=== PATIENT | male | born 1960 | race Caucasian/White ===

== ENCOUNTER 2019-11-04 17:16 | Emergency (ER) | payer OTHER ==
--- OUTSIDE RECORDS SUMMARY | 2019-11-04 17:27 | XMS REPORT | Continuity of Care Document ---
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 Onset: 2016 Primary malignant neoplasm of unspecified Shania Mcdermott DO Onset: 2016 site (clinical) Chemotherapy changed - patient choice Shania Mcdermott DO Onset: 04/05/2019 Social History Type Date Description Comments Sex Unknown Tobacco Use Start: Unknown Never Smoked Cigarettes ETOH Use Never used alcohol Tobacco Use Start: Unknown Patient has never smoked Allergies, Adverse Reactions, Alerts Active Allergies Reaction Severity Comments Date Cipro Bactrim Moderate 01/16/2017 Inactive Allergies Amlodipine "nervous" feelings NKDA 05/09/2011 Medications Active Medications SIG Qnty Indications Ordering Provider Date Afluria Preservative Unknown 07/29/2019 Free 0.5ml Kiana Clonidine HCL 1 patch topically Kenia Dumont MD 09/25/2017 0.1mg/24HR weekly Patches Weekly Lisinopril 1 by mouth every Unknown 40mg Tablets day Colace prn Unknown 100mg Capsules Metoprolol Tartrate 1 Day Twice A Day Unknown 50mg Tablets Amlodipine Besylate Once Daily Marco Smith MD 5mg Tablets Immunizations Description No Information Available Vital Signs Date Vital Result Comment 10/04/2019 1:36pm BP Systolic 151 mmHg BP Diastolic 98 mmHg Body Temperature 98.6 F Heart Rate 71 /min Respiratory Rate 18 /min Weight 157.25 lb O2 % BldC Oximetry 100 % Ra Pain Level 0 09/06/2019 2:03pm BP Systolic 159 mmHg right BP Diastolic 103 mmHg right BP Systolic Sitting Right Arm 144 mmHg BP Diastolic Sitting Right Arm 96 mmHg Body Temperature 98.6 F Heart Rate 78 /min Respiratory Rate 18 /min Weight 153.38 lb O2 % BldC Oximetry 97 % Ra Pain Level 0 Results Test Acquired Facility Test Result H/L Range Note Date Laboratory 10/04/2019 [facility] Chromogranin A <pending> test finding [address] [place] [address] [phone] [facility] 10/04/2019 [facility] White Blood 6.8 K/uL Normal 3.4-10.5 1 W/Automated [address] [place] [address] [phone] Red Blood Count 4.67 M/uL Normal 4.20-5.80 Hemoglobin 15.6 gm/dL Normal 12.8-17.0 Hematocrit 45.6 % Normal 38.0-48.0 Mean Cell Volume 97.6 fl High 80.0-96.0 Mean Corpuscular HGB 33.4 pg High 27.0-33.0 Mean Corpuscular HGB Conc 34.2 g/dL Normal 31.7-36.0 Platelet Count 266 K/uL Normal 155-360 Red Cell Distri Width SD 44.5 fl Normal 36-51 Red Cell Distri Width %CV 12.4 % Normal 11.6-15.8 Mean Platelet Volume 10.3 fl Normal 6.6-10.6 Neut% 50.9 % Normal 33.0-73.0 Lymph % 38.0 % Normal 20.0-42.0 [place] % 8.1 % Normal 0.0-10.0 Eo% 1.8 % Normal 0.0-6.6 Bas% 0.9 % Normal 0.0-1.1 Immature Grans 0.3 % Normal 0.0-5.0 NRBC % 0.0 /100WBC < 10/ 100 WBC Neut# 3.45 K/uL Normal 1.8-7.0 Lymph # 2.57 K/uL Normal 1.0-4.0 [place] # 0.55 K/uL Normal 0.0-0.8 Eos # 0.12 K/uL Normal 0.0-0.5 Baso # 0.06 K/uL Normal 0.0-0.1 Immature Grans Absolute 0.02 K/uL NRBC # 0.00 K/uL Comprehensive Metabolic 10/04/2019 [facility] Glucose 111 mg/dL High 74-[address] [place] [address] [phone] BUN 20 mg/dL High 7-18 Creatinine 1.1 mg/dL Normal 0.6-1.3 Glom Filtration Rate, Estimate >60 mL/min >60 If >60 mL/min >60 2 BUN/Creat 18.1 ratio Sodium 137 mmol/L Normal 136-145 Potassium 4.1 mmol/L Normal 3.5-5.1 Chloride 103 mmol/L Normal 98-107 Carbon Dioxide 32 mmol/L Normal 21-32 Anion Gap 2 mEq/L Low 8-16 Calcium 9.0 mg/dL Normal 8.5-10.1 Total Protein 8.4 g/dL High 6.4-8.2 Albumin 4.1 g/dL Normal 3.4-5.0 Globulin 4.3 g/dL Normal 1.9-4.3 Alb/Glob 1.0 ratio Bilirubin,Total 0.6 mg/dL Normal 0.2-1.0 Sgot/Ast 21 U/L Normal 15-37 SGPT/Alt 28 U/L Normal 12-78 Alkaline Phosphatase 60 U/L Normal 45-117 CBS W/Automated 09/06/2019 [facility] White Blood 6.8 K/uL Normal 3.4-10.[address] [place] [address] [phone] Red Blood Count 4.28 M/uL Normal 4.20-5.80 Hemoglobin 14.7 gm/dL Normal 12.8-17.0 Hematocrit 41.6 % Normal 38.0-48.0 Mean Cell Volume 97.2 fl High 80.0-96.0 Mean Corpuscular HGB 34.3 pg High 27.0-33.0 Mean Corpuscular HGB Conc 35.3 g/dL Normal 31.7-36.0 Platelet Count 276 K/uL Normal 155-360 Red Cell Distri Width SD 43.0 fl Normal 36-51 Red Cell Distri Width %CV 12.0 % Normal 11.6-15.8 Mean Platelet Volume 10.3 fl Normal 6.6-10.6 Neut% 51.7 % Normal 33.0-73.0 Lymph % 38.0 % Normal 20.0-42.0 [place] % 8.4 % Normal 0.0-10.0 Eo% 1.2 % Normal 0.0-6.6 Bas% 0.6 % Normal 0.0-1.1 Immature Grans 0.1 % Normal 0.0-5.0 NRBC % 0.0 /100WBC < 10/ 100 WBC Neut# 3.52 K/uL Normal 1.8-7.0 Lymph # 2.59 K/uL Normal 1.0-4.0 [place] # 0.57 K/uL Normal 0.0-0.8 Eos # 0.08 K/uL Normal 0.0-0.5 Baso # 0.04 K/uL Normal 0.0-0.1 Immature Grans Absolute 0.01 K/uL NRBC # 0.00 K/uL [facility] 09/06/2019 [facility] Glucose 103 mg/dL Normal 74-106 Metabolic Panel [address] [place] [address] [phone] BUN 18 mg/dL Normal 7-18 Creatinine 1.1 mg/dL Normal 0.6-1.3 Glom Filtration Rate, Estimate >60 mL/min >60 If >60 mL/min >60 4 BUN/Creat 16.3 ratio Sodium 135 mmol/L Low 136-145 Potassium 4.0 mmol/L Normal 3.5-5.1 Chloride 100 mmol/L Normal 98-107 Carbon Dioxide 30 mmol/L Normal 21-32 Anion Gap 5 mEq/L Low 8-16 Calcium 8.7 mg/dL Normal 8.5-10.1 Total Protein 8.1 g/dL Normal 6.4-8.2 Albumin 4.0 g/dL Normal 3.4-5.0 Globulin 4.1 g/dL Normal 1.9-4.3 Alb/Glob 1.0 ratio Bilirubin,Total 0.6 mg/dL Normal 0.2-1.0 Sgot/Ast 17 U/L Normal 15-37 SGPT/Alt 19 U/L Normal 12-78 Alkaline Phosphatase 53 U/L Normal 45-117 CBS W/Automated 08/09/2019 [facility] White Blood 6.3 K/uL Normal 3.4-10.5 [address] [place] [address] [phone] Red Blood Count 4.32 M/uL Normal 4.20-5.80 Hemoglobin 14.8 gm/dL Normal 12.8-17.0 Hematocrit 42.4 % Normal 38.0-48.0 Mean Cell Volume 98.1 fl High 80.0-96.0 Mean Corpuscular HGB 34.3 pg High 27.0-33.0 Mean Corpuscular HGB Conc 34.9 g/dL Normal 31.7-36.0 Platelet Count 250 K/uL Normal 155-360 Red Cell Distri Width SD 43.5 fl Normal 36-51 Red Cell Distri Width %CV 12.0 % Normal 11.6-15.8 Mean Platelet Volume 10.4 fl Normal 6.6-10.6 Neut% 48.6 % Normal 33.0-73.0 Lymph % 41.9 % Normal 20.0-42.0 [place] % 6.6 % Normal 0.0-10.0 Eo% 1.8 % Normal 0.0-6.6 Bas% 0.8 % Normal 0.0-1.1 Immature Grans 0.3 % Normal 0.0-5.0 NRBC % 0.0 /100WBC < 10/ 100 WBC Neut# 3.04 K/uL Normal 1.8-7.0 Lymph # 2.62 K/uL Normal 1.0-4.0 [place] # 0.41 K/uL Normal 0.0-0.8 Eos # 0.11 K/uL Normal 0.0-0.5 Baso # 0.05 K/uL Normal 0.0-0.1 Immature Grans Absolute 0.02 K/uL NRBC # 0.00 K/uL Comprehensive Metabolic 08/09/2019 [facility] Glucose 138 mg/dL High 74-[address] [place] [address] [phone] BUN 18 mg/dL Normal 7-18 Creatinine 1.0 mg/dL Normal 0.6-1.3 Glom Filtration Rate, Estimate >60 mL/min >60 If >60 mL/min >60 6 BUN/Creat 18.0 ratio Sodium 136 mmol/L Normal 136-145 Potassium 4.2 mmol/L Normal 3.5-5.1 Chloride 102 mmol/L Normal 98-107 Carbon Dioxide 31 mmol/L Normal 21-32 Anion Gap 3 mEq/L Low 8-16 Calcium 8.4 mg/dL Low 8.5-10.1 Total Protein 8.2 g/dL Normal 6.4-8.2 Albumin 3.9 g/dL Normal 3.4-5.0 Globulin 4.3 g/dL Normal 1.9-4.3 Alb/Glob 0.9 ratio Bilirubin,Total 0.6 mg/dL Normal 0.2-1.0 Sgot/Ast 21 U/L Normal 15-37 SGPT/Alt 25 U/L Normal 12-78 Alkaline Phosphatase 56 U/L Normal 45-117 CBS W/Automated 07/12/2019 [facility] White Blood 6.0 K/uL Normal 3.4-10.[address] [place] [address] [phone] Red Blood Count 4.13 M/uL Low 4.20-5.80 Hemoglobin 13.8 gm/dL Normal 12.8-17.0 Hematocrit 40.5 % Normal 38.0-48.0 Mean Cell Volume 98.1 fl High 80.0-96.0 Mean Corpuscular HGB 33.4 pg High 27.0-33.0 Mean Corpuscular HGB Conc 34.1 g/dL Normal 31.7-36.0 Platelet Count 217 K/uL Normal 155-360 Red Cell Distri Width SD 44.2 fl Normal 36-51 Red Cell Distri Width %CV 12.2 % Normal 11.6-15.8 Mean Platelet Volume 10.0 fl Normal 6.6-10.6 Neut% 45.6 % Normal 33.0-73.0 Lymph % 42.4 % High 20.0-42.0 [place] % 9.5 % Normal 0.0-10.0 Eo% 1.7 % Normal 0.0-6.6 Bas% 0.5 % Normal 0.0-1.1 Immature Grans 0.3 % Normal 0.0-5.0 NRBC % 0.0 /100WBC < 10/ 100 WBC Neut# 2.75 K/uL Normal 1.8-7.0 Lymph # 2.55 K/uL Normal 1.0-4.0 [place] # 0.57 K/uL Normal 0.0-0.8 Eos # 0.10 K/uL Normal 0.0-0.5 Baso # 0.03 K/uL Normal 0.0-0.1 Immature Grans Absolute 0.02 K/uL NRBC # 0.00 K/uL Comprehensive 07/12/2019 [facility] Glucose 86 mg/dL Normal 74-106 Metabolic Panel [address] [place] [address] [phone] BUN 18 mg/dL Normal 7-18 Creatinine 1.1 mg/dL Normal 0.6-1.3 Glom Filtration Rate, Estimate >60 mL/min >60 If >60 mL/min >60 7 BUN/Creat 16.3 ratio Sodium 135 mmol/L Low 136-145 Potassium 4.1 mmol/L Normal 3.5-5.1 Chloride 101 mmol/L Normal 98-107 Carbon Dioxide 31 mmol/L Normal 21-32 Anion Gap 3 mEq/L Low 8-16 Calcium 8.3 mg/dL Low 8.5-10.1 Total Protein 7.4 g/dL Normal 6.4-8.2 Albumin 3.3 g/dL Low 3.4-5.0 Globulin 4.1 g/dL Normal 1.9-4.3 Alb/Glob 0.8 ratio Bilirubin,Total 0.6 mg/dL Normal 0.2-1.0 Sgot/Ast 21 U/L Normal 15-37 SGPT/Alt 19 U/L Normal 12-78 Alkaline Phosphatase 47 U/L Normal 45-117 CBS W/Automated 06/14/2019 [facility] White Blood 6.6 K/uL Normal 3.4-10.5 [address] [place] [address] [phone] Red Blood Count 4.14 M/uL Low 4.20-5.80 Hemoglobin 14.3 gm/dL Normal 12.8-17.0 Hematocrit 39.8 % Normal 38.0-48.0 Mean Cell Volume 96.1 fl High 80.0-96.0 Mean Corpuscular HGB 34.5 pg High 27.0-33.0 Mean Corpuscular HGB Conc 35.9 g/dL Normal 31.7-36.0 Platelet Count 258 K/uL Normal 155-360 Red Cell Distri Width SD 42.5 fl Normal 36-51 Red Cell Distri Width %CV 12.1 % Normal 11.6-15.8 Mean Platelet Volume 10.3 fl Normal 6.6-10.6 Neut% 55.1 % Normal 33.0-73.0 Lymph % 35.2 % Normal 20.0-42.0 [place] % 6.9 % Normal 0.0-10.0 Eo% 1.5 % Normal 0.0-6.6 Bas% 0.8 % Normal 0.0-1.1 Immature Grans 0.5 % Normal 0.0-5.0 NRBC % 0.0 /100WBC < 10/ 100 WBC Neut# 3.66 K/uL Normal 1.8-7.0 Lymph # 2.34 K/uL Normal 1.0-4.0 [place] # 0.46 K/uL Normal 0.0-0.8 Eos # 0.10 K/uL Normal 0.0-0.5 Baso # 0.05 K/uL Normal 0.0-0.1 Immature Grans Absolute 0.03 K/uL NRBC # 0.00 K/uL Comprehensive Metabolic 06/14/2019 [facility] Glucose 138 mg/dL High 74-106 Panel [address] [place] [address] [phone] BUN 16 mg/dL Normal 7-18 Creatinine 1.2 mg/dL Normal 0.6-1.3 Glom Filtration Rate, Estimate >60 mL/min >60 If >60 mL/min >60 9 BUN/Creat 13.3 ratio Sodium 137 mmol/L Normal 136-145 Potassium 3.7 mmol/L Normal 3.5-5.1 Chloride 103 mmol/L Normal 98-107 Carbon Dioxide 28 mmol/L Normal 21-32 Anion Gap 6 mEq/L Low 8-16 Calcium 8.1 mg/dL Low 8.5-10.1 Total Protein 7.7 g/dL Normal 6.4-8.2 Albumin 3.5 g/dL Normal 3.4-5.0 Globulin 4.2 g/dL Normal 1.9-4.3 Alb/Glob 0.8 ratio Bilirubin,Total 0.5 mg/dL Normal 0.2-1.0 Sgot/Ast 21 U/L Normal 15-37 SGPT/Alt 31 U/L Normal 12-78 Alkaline Phosphatase 58 U/L Normal 45-117 Blood monocytes 06/05/2019 N2N/CCD Import Blood monocytes 0.71 0.0-0.8 automated count automated count (number/volume) (number/volume) Automated blood 06/05/2019 N2N/CCD Import Automated blood 0.19 0.0-0.5 eosinophil count eosinophil count Automated blood 06/05/2019 N2N/CCD Import Automated blood 0.03 0.0-0.1 basophil count basophil count (number/volume) (number/volume) Automated blood 06/05/2019 N2N/CCD Import Automated blood 0.03 immature immature granulocyte count granulocyte count (number (number/volume) Automated blood 06/05/2019 N2N/CCD Import Automated blood 0.00 nucleated nucleated erythrocyte count erythrocyte count (count (count/volume) Serum or plasma 06/05/2019 N2N/CCD Import Serum or plasma 109 High 74- 106 glucose measurement glucose (mass/volume) measurement (mass/volume) Serum or plasma 06/05/2019 N2N/CCD Import Serum or plasma 15 7-18 urea nitrogen urea nitrogen measurement measurement (mass/vo (mass/volume) Serum or plasma 06/05/2019 N2N/CCD Import Serum or plasma 1.0 0.6-1.3 creatinine creatinine measurement measurement (mass/volum (mass/volume) Estimated 06/05/2019 N2N/CCD Import Estimated >60 >60 glomerular glomerular filtration rate filtration rate (GFR) non-Afr (GFR) non- GFR/Bsa pred.black 06/05/2019 N2N/CCD Import GFR/Bsa pred.black >60 >60 SerPl MDRD-ArVRat SerPl MDRD-ArVRat Serum or plasma 06/05/2019 N2N/CCD Import Serum or plasma 15.0 urea urea nitrogen/creatinine nitrogen/creatinin mass rati e mass ratio Sodium SerPl-sCnc 06/05/2019 N2N/CCD Import Sodium SerPl-sCnc 142 136- 145 Serum or plasma 06/05/2019 N2N/CCD Import Serum or plasma 3.9 3.5-5.1 potassium potassium measurement measurement Serum or plasma 06/05/2019 N2N/CCD Import Serum or plasma 108 High 98- 107 chloride chloride measurement measurement Co2 SerPl-sCnc 06/05/2019 N2N/CCD Import Co2 SerPl-sCnc 28 21-32 Serum or plasma 06/05/2019 N2N/CCD Import Serum or plasma 6 Low 8-16 anion gap anion gap Serum or plasma 06/05/2019 N2N/CCD Import Serum or plasma 8.5 8.5-10.1 calcium measurement calcium (mass/volume) measurement (mass/volume) Lactic Acid 06/05/2019 [facility] Lactic Acid 1.1 Normal 0.4-1.[address] mmol/[place] [address] [phone] Lab Reflex >2.0 for Sepsis? Y Serum or plasma 06/05/2019 N2N/CCD Import Serum or plasma 1.1 0.4-1.9 lactate lactate measurement measurement (moles/volume) (moles/volume) Laboratory test 06/05/2019 [facility] Legionella Negative Negative [address] [place] [address] [phone] Urine Legionella 06/05/2019 N2N/CCD Import Urine Legionella Negative Negative pneumophila 1 pneumophila 1 antigen detection antigen detection b by immunoassay CBC W/Automated 06/05/2019 [facility] White Blood Count 8.3 K/uL Normal 3.4- 10.[address] [place] [address] [phone] Red Blood Count 4.04 M/uL Low 4.20-5.80 Hemoglobin 13.9 gm/dL Normal 12.8-17.0 Hematocrit 39.6 % Normal 38.0-48.0 Mean Cell Volume 98.0 fl High 80.0-96.0 Mean Corpuscular HGB 34.4 pg High 27.0-33.0 Mean Corpuscular HGB Conc 35.1 g/dL Normal 31.7-36.0 Platelet Count 215 K/uL Normal 155-360 Red Cell Distri Width SD 45.0 fl Normal 36-51 Red Cell Distri Width %CV 12.4 % Normal 11.6-15.8 Mean Platelet Volume 10.3 fl Normal 6.6-10.6 Neut% 64.3 % Normal 33.0-73.0 Lymph % 24.1 % Normal 20.0-42.0 [place] % 8.5 % Normal 0.0-10.0 Eo% 2.3 % Normal 0.0-6.6 Bas% 0.4 % Normal 0.0-1.1 Immature Grans 0.4 % Normal 0.0-5.0 NRBC % 0.0 /100WBC < 10/ 100 WBC Neut# 5.35 K/uL Normal 1.8-7.0 Lymph # 2.00 K/uL Normal 1.0-4.0 [place] # 0.71 K/uL Normal 0.0-0.8 Eos # 0.19 K/uL Normal 0.0-0.5 Baso # 0.03 K/uL Normal 0.0-0.1 Immature Grans Absolute 0.03 K/uL NRBC # 0.00 K/uL Basic Metabolic Panel 06/05/2019 [facility] Glucose 109 mg/dL High 74-106 [address] [place] [address] [phone] BUN 15 mg/dL Normal 7-18 Creatinine 1.0 mg/dL Normal 0.6-1.3 Glom Filtration Rate, Estimate >60 mL/min >60 If >60 mL/min >60 12 BUN/Creat 15.0 ratio Sodium 142 mmol/L Normal 136-145 Potassium 3.9 mmol/L Normal 3.5-5.1 Chloride 108 mmol/L High 98-107 Carbon Dioxide 28 mmol/L Normal 21-32 Anion Gap 6 mEq/L Low 8-16 Calcium 8.5 mg/dL Normal 8.5-10.1 Automated 06/05/2019 N2N/CCD Import Automated 8.3 3.4-10.5 leukocyte count leukocyte count (number/volume) (number/volume) Blood erythrocytes 06/05/2019 N2N/CCD Import Blood erythrocytes 4.04 Low 4.20-5.80 automated count automated count (number/volume) (number/volume) Blood hemoglobin 06/05/2019 N2N/CCD Import Blood hemoglobin 13.9 12.8- 17.0 measurement measurement (mass/volume) (mass/volume) Hct VFr Bld Auto 06/05/2019 N2N/CCD Import Hct VFr Bld Auto 39.6 38.0- 48.0 Automated 06/05/2019 N2N/CCD Import Automated 98.0 High 80.0-96.0 erythrocyte mean erythrocyte mean corpuscular volume corpuscular volume (MCV (MCV) measurement Automated 06/05/2019 N2N/CCD Import Automated 34.4 High 27.0-33.0 erythrocyte mean erythrocyte mean corpuscular corpuscular hemoglobin hemoglobin (mass per erythrocyte) Automated 06/05/2019 N2N/CCD Import Automated 35.1 31.7-36.0 erythrocyte mean erythrocyte mean corpuscular corpuscular hemoglobin hemoglobin concentration measurement (mass/volume) Automated blood 06/05/2019 N2N/CCD Import Automated blood 215 155-360 platelet count platelet count (count/volume) (count/volume) Automated 06/05/2019 N2N/CCD Import Automated 45.0 36-51 erythrocyte erythrocyte distribution width distribution width Automated blood 06/05/2019 N2N/CCD Import Automated blood 2.00 1.0-4.0 lymphocyte count lymphocyte count (number/volume) (number/volume) Absolute 06/05/2019 N2N/CCD Import Absolute 5.35 1.8-7.0 neutrophil count neutrophil count Automated blood 06/05/2019 N2N/CCD Import Automated blood 0.0 < 10/ 100 nucleated nucleated WBC erythrocyte count erythrocyte count as per as percentage of total leukocytes Automated blood 06/05/2019 N2N/CCD Import Automated blood 0.4 0.0-5.0 immature immature granulocyte count granulocyte count as perc as percentage of total leukocytes Automated basophil 06/05/2019 N2N/CCD Import Automated basophil 0.4 0.0- 1.1 % % Automated 06/05/2019 N2N/CCD Import Automated 12.4 11.6-15.8 erythrocyte erythrocyte distribution width distribution width ratio ratio Automated blood 06/05/2019 N2N/CCD Import Automated blood 10.3 6.6-10.6 platelet mean platelet mean volume measurement volume measurement Automated blood 06/05/2019 N2N/CCD Import Automated blood 64.3 33.0- 73.0 neutrophils/100 neutrophils/100 leukocytes leukocytes Automated 06/05/2019 N2N/CCD Import Automated 2.3 0.0-6.6 eosinophil % eosinophil % Automated monocyte 06/05/2019 N2N/CCD Import Automated monocyte 8.5 0.0- 10.0 % % Automated blood 06/05/2019 N2N/CCD Import Automated blood 24.1 20.0- 42.0 lymphocytes/100 lymphocytes/100 leukocytes leukocytes Automated urine 06/04/2019 N2N/CCD Import Automated urine 2-5 0-2 sediment sediment erythrocyte count erythrocyte count by micr by microscopy (number/high power field) Urine nitrite 06/04/2019 N2N/CCD Import Urine nitrite Negative Negative detection by detection by automated test automated test strip strip Blood Culture 06/04/2019 [facility] Blood Culture NO GROWTH: [address] Aerobic FINAL <[place] [address] NOTE> [phone] Blood Culture Anaerobic NO GROWTH: FINAL <SEE NOTE> 14 Aot Request 06/04/2019 [facility] Aot Request Test(s) added [address] [place] [address] [phone] Tests to be added: CRP, MAGNESIUM Epithelial cells 06/04/2019 N2N/CCD Import Epithelial cells Very Few None Seen detection in detection in urine sediment by urine sediment li by light microscopy Urine ketones 06/04/2019 N2N/CCD Import Urine ketones Negative Negative measurement by measurement by automated test automated test strip strip (mass/volume) Blood Culture 06/04/2019 [facility] Blood Culture NO GROWTH: [address] Aerobic FINAL <[place] [address] NOTE> [phone] Blood Culture Anaerobic NO GROWTH: FINAL <SEE NOTE> 17 Laboratory test 06/04/2019 [facility] Magnesium 2.0 mg/dL Normal 1.8-2.4 18 finding [address] [place], [place] [address] [phone] CK 105 U/L Normal 39-308 19 Troponin-I < 0.015 ng/mL 20 C-Reactive Protein,Quant 6.1 mg/L High <3.0 21 Serum or plasma 06/04/2019 N2N/CCD Import Serum or plasma 58 45-117 alkaline alkaline phosphatase phosphatase measurement ( measurement (enzymatic activity/volume) Urine appearance 06/04/2019 N2N/CCD Import Urine appearance Clear Clear determination determination Urine leukocyte 06/04/2019 N2N/CCD Import Urine leukocyte Negative Negative esterase esterase detection detection by by automated test automated te strip Urine hemoglobin 06/04/2019 N2N/CCD Import Urine hemoglobin Small High Negative detection by detection by automated test automated test strip strip Serum or plasma 06/04/2019 N2N/CCD Import Serum or plasma 3.9 3.4-5.0 albumin albumin measurement measurement (mass/volume) (mass/volume) Urine sediment 06/04/2019 N2N/CCD Import Urine sediment 0-2 0-7 leukocyte count leukocyte count by by microscopy microscopy (numb (number/high power field) Urine total 06/04/2019 N2N/CCD Import Urine total Negative Negative bilirubin bilirubin detection detection by by automated test automated test strip Bacteria 06/04/2019 N2N/CCD Import Bacteria detection Very Few None Seen detection in in urine sediment urine sediment by by light microscopy light micr Urine glucose 06/04/2019 N2N/CCD Import Urine glucose Negative Negative measurement by measurement by automated test automated test strip strip (mass/volume) Comprehensive 06/04/2019 [facility] Glucose 112 mg/dL High 74-106 Metabolic Panel [address] [place] [address] [phone] BUN 18 mg/dL Normal 7-18 Creatinine 1.2 mg/dL Normal 0.6-1.3 Glom Filtration Rate, Estimate >60 mL/min >60 If >60 mL/min >60 22 BUN/Creat 15.0 ratio Sodium 136 mmol/L Normal 136-145 Potassium 3.9 mmol/L Normal 3.5-5.1 Chloride 102 mmol/L Normal 98-107 Carbon Dioxide 26 mmol/L Normal 21-32 Anion Gap 8 mEq/L Normal 8-16 Calcium 8.3 mg/dL Low 8.5-10.1 Total Protein 8.2 g/dL Normal 6.4-8.2 Albumin 3.9 g/dL Normal 3.4-5.0 Globulin 4.3 g/dL Normal 1.9-4.3 Alb/Glob 0.9 ratio Bilirubin,Total 0.8 mg/dL Normal 0.2-1.0 Sgot/Ast 37 U/L Normal 15-37 SGPT/Alt 28 U/L Normal 12-78 Alkaline Phosphatase 58 U/L Normal 45-117 Specific gravity 06/04/2019 N2N/CCD Import Specific gravity <=1.005 Low 1.010-1.030 of Urine by of Urine by Automated test Automated test strip strip Serum or plasma 06/04/2019 N2N/CCD Import Serum or plasma 8.2 6.4-8.2 protein protein measurement measurement (mass/volume) (mass/volume) * Miscellaneous 06/04/2019 N2N/CCD Import * Miscellaneous Test(s) studies (set) studies (set) added Serum globulin 06/04/2019 N2N/CCD Import Serum globulin 4.3 1.9-4.3 measurement by measurement by calculation calculation (mass/vo (mass/volume) Urine pH 06/04/2019 N2N/CCD Import Urine pH 6.5 6.5-7.5 measurement by measurement by automated test automated test strip strip Serum or plasma 06/04/2019 N2N/CCD Import Serum or plasma 0.9 albumin/globulin albumin/globulin mass ratio mass ratio Serum or plasma 06/04/2019 N2N/CCD Import Serum or plasma 28 12-78 alanine alanine aminotransferase aminotransferase measureme measurement (enzymatic activity/volume) Urine 06/04/2019 N2N/CCD Import Urine 0.2 0.2-1.0 urobilinogen urobilinogen measurement measurement (units/volume) by (units/volume) t by test strip Serum or plasma 06/04/2019 N2N/CCD Import Serum or plasma 0.8 0.2-1.0 total bilirubin total bilirubin measurement measurement (mass/ (mass/volume) Laboratory test 06/04/2019 [facility] Lactic Acid 3.0 Critical 0.4-1.[address] mmol/[place] [address] [phone] Urine color 06/04/2019 N2N/CCD Import Urine color Straw Yellow determination determination Urine protein 06/04/2019 N2N/CCD Import Urine protein Negative Negative measurement by measurement by automated test automated test strip strip (mass/volume) Serum or plasma 06/04/2019 N2N/CCD Import Serum or plasma 37 15-37 aspartate aspartate aminotransferase aminotransferase measure measurement (enzymatic activity/volume) CBS W/Automated 05/10/2019 [facility] White Blood 7.0 K/uL Normal 3.4-10.5 [address] [place] [address] [phone] Red Blood Count 4.15 M/uL Low 4.20-5.80 Hemoglobin 13.8 gm/dL Normal 12.8-17.0 Hematocrit 40.5 % Normal 38.0-48.0 Mean Cell Volume 97.6 fl High 80.0-96.0 Mean Corpuscular HGB 33.3 pg High 27.0-33.0 Mean Corpuscular HGB Conc 34.1 g/dL Normal 31.7-36.0 Platelet Count 262 K/uL Normal 155-360 Red Cell Distri Width SD 43.7 fl Normal 36-51 Red Cell Distri Width %CV 12.2 % Normal 11.6-15.8 Mean Platelet Volume 10.2 fl Normal 6.6-10.6 Neut% 52.3 % Normal 33.0-73.0 Lymph % 37.1 % Normal 20.0-42.0 [place] % 8.4 % Normal 0.0-10.0 Eo% 1.3 % Normal 0.0-6.6 Bas% 0.6 % Normal 0.0-1.1 Immature Grans 0.3 % Normal 0.0-5.0 NRBC % 0.0 /100WBC < 10/ 100 WBC Neut# 3.69 K/uL Normal 1.8-7.0 Lymph # 2.61 K/uL Normal 1.0-4.0 [place] # 0.59 K/uL Normal 0.0-0.8 Eos # 0.09 K/uL Normal 0.0-0.5 Baso # 0.04 K/uL Normal 0.0-0.1 Immature Grans Absolute 0.02 K/uL NRBC # 0.00 K/uL Comprehensive Metabolic 05/10/2019 [facility] Glucose 109 mg/dL High 74-106 Panel [address] [place] [address] [phone] BUN 19 mg/dL High 7-18 Creatinine 1.0 mg/dL Normal 0.6-1.3 Glom Filtration Rate, Estimate >60 mL/min >60 If >60 mL/min >60 24 BUN/Creat 19.0 ratio Sodium 135 mmol/L Low 136-145 Potassium 4.1 mmol/L 3.5-5.1 Chloride 103 mmol/L Normal 98-107 Carbon Dioxide 29 mmol/L Normal 21-32 Anion Gap 3 mEq/L Low 8-16 Calcium 8.3 mg/dL Low 8.5-10.1 Total Protein 8.0 g/dL Normal 6.4-8.2 Albumin 3.7 g/dL Normal 3.4-5.0 Globulin 4.3 g/dL Normal 1.9-4.3 Alb/Glob 0.9 ratio Bilirubin,Total 0.5 mg/dL Normal 0.2-1.0 Sgot/Ast 19 U/L Normal 15-37 SGPT/Alt 21 U/L Normal 12-78 Alkaline Phosphatase 51 U/L Normal 45-117 Serum or plasma 04/27/2019 N2N/CCD Import Serum or plasma lipase 306 High 56-289 lipase measurement measurement (enzymatic (enzymatic acti activity/volume) 1 C7A.00 C78.7 Z51.11 C67.9 2 Note: Persistent reduction for 3 months or more in an eGFR <60 mL/min/1.73 m2 defines CKD. Patients with eGFR values >/=60 mL/min/1.73 m2 may also have CKD if evidence of persistent proteinuria is present. The original MDRD equation for estimated GFR is not valid for patients less than 18 years of age. Additional information may be found at [email or web address]. 3 C7A.00 C78.7 4 Note: Persistent reduction for 3 months or more in an eGFR <60 mL/min/1.73 m2 defines CKD. Patients with eGFR values >/=60 mL/min/1.73 m2 may also have CKD if evidence of persistent proteinuria is present. The original MDRD equation for estimated GFR is not valid for patients less than 18 years of age. Additional information may be found at [email or web address]. 5 C7A.00 C78.7 Z51.11 C67.9 6 Note: Persistent reduction for 3 months or more in an eGFR <60 mL/min/1.73 m2 defines CKD. Patients with eGFR values >/=60 mL/min/1.73 m2 may also have CKD if evidence of persistent proteinuria is present. The original MDRD equation for estimated GFR is not valid for patients less than 18 years of age. Additional information may be found at [email or web address]. 7 Note: Persistent reduction for 3 months or more in an eGFR <60 mL/min/1.73 m2 defines CKD. Patients with eGFR values >/=60 mL/min/1.73 m2 may also have CKD if evidence of persistent proteinuria is present. The original MDRD equation for estimated GFR is not valid for patients less than 18 years of age. Additional information may be found at [email or web address]. 8 C7A.00 C78.7 Z85.81 C67.9 9 Note: Persistent reduction for 3 months or more in an eGFR <60 mL/min/1.73 m2 defines CKD. Patients with eGFR values >/=60 mL/min/1.73 m2 may also have CKD if evidence of persistent proteinuria is present. The original MDRD equation for estimated GFR is not valid for patients less than 18 years of age. Additional information may be found at [email or web address]. 10 LACTIC ACIDOSIS 11 Presumptive negative for L. pneumophila serogroup 1 antigen in urine, suggesting no recent or current infection. Legionnaires' disease cannot be ruled out since other serogroups and species may also cause disease. 12 Note: Persistent reduction for 3 months or more in an eGFR <60 mL/min/1.73 m2 defines CKD. Patients with eGFR values >/=60 mL/min/1.73 m2 may also have CKD if evidence of persistent proteinuria is present. The original MDRD equation for estimated GFR is not valid for patients less than 18 years of age. Additional information may be found at [email or web address]. 13 NO GROWTH: FINAL REPORT 14 NO GROWTH: FINAL REPORT 15 Tests: CRP, MAGNESIUM Instructions: 16 NO GROWTH: FINAL REPORT 17 NO GROWTH: FINAL REPORT 18 Specimen slightly Hemolyzed, interpret with caution 19 Specimen slightly Hemolyzed, interpret with caution 20 0.0 - 0.045 ng/mL: Normal 0.046 - 0.5 ng/mL: Suggestive 0.6 - 1.5 ng/mL: Consistent 21 Specimen slightly Hemolyzed, interpret with caution 22 Note: Persistent reduction for 3 months or more in an eGFR <60 mL/min/1.73 m2 defines CKD. Patients with eGFR values >/=60 mL/min/1.73 m2 may also have CKD if evidence of persistent proteinuria is present. The original MDRD equation for estimated GFR is not valid for patients less than 18 years of age. Additional information may be found at [email or web address]. 23 C7A.00 C78.7 C67.9 Z51.11 24 Note: Persistent reduction for 3 months or more in an eGFR <60 mL/min/1.73 m2 defines CKD. Patients with eGFR values >/=60 mL/min/1.73 m2 may also have CKD if evidence of persistent proteinuria is present. The original MDRD equation for estimated GFR is not valid for patients less than 18 years of age. Additional information may be found at [email or web address]. 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 Office Visit 07/12/2019 1:00p [facility] [place], C7A.00 Malignant Olga B., AREA DIRECTOR carcinoid tumor of unspecified site Office Visit 06/14/2019 1:30p [facility] [place], C7A.00 Malignant Olga B., AREA DIRECTOR carcinoid tumor of unspecified site 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 Office Visit 05/10/2019 1:30p [facility] [place], C7A.00 Malignant Olga B., AREA DIRECTOR carcinoid tumor of unspecified site 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 Assessments Date Code Description Provider 10/04/2019 C7A.00 Malignant carcinoid tumor of unspecified [place], Olga B., AREA DIRECTOR site 10/04/2019 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 [place], Olga B., AREA DIRECTOR intrahepatic bile duct 09/06/2019 C7A.00 Malignant carcinoid tumor of unspecified [place], Olga B., AREA DIRECTOR site 09/06/2019 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 [place], Olga B., AREA DIRECTOR intrahepatic bile duct 08/09/2019 C7A.00 Malignant carcinoid tumor of unspecified [place], Olga B., AREA DIRECTOR site 08/09/2019 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 [place], Olga B., AREA DIRECTOR intrahepatic bile duct 07/12/2019 C7A.00 Malignant carcinoid tumor of unspecified [place], Olga B., AREA DIRECTOR site 06/14/2019 C7A.00 Malignant carcinoid tumor of unspecified Olga Briscoe, AREA DIRECTOR site 06/14/2019 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 (Sirs) of non-infectious origin without acute organ dysfunction 06/05/2019 I10 Essential (primary) hypertension Nia Murillo M.D. 06/05/2019 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 Nia Murillo M.D. intrahepatic bile duct 06/05/2019 Z92.25 Personal history of immunosupression therapy Nia Murillo M.D. 06/04/2019 R65.10 Systemic inflammatory response syndrome Nia Murillo M.D. (Sirs) of non-infectious origin without acute organ dysfunction 06/04/2019 I10 Essential (primary) hypertension Nia Murillo M.D. 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 intrahepatic bile duct 06/04/2019 Z92.25 Personal history of immunosupression therapy Nia Murillo M.D. 05/10/2019 C7A.00 Malignant carcinoid tumor of unspecified Olga Briscoe, AREA DIRECTOR site 05/10/2019 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 Olga Briscoe AREA DIRECTOR intrahepatic bile Plan of Treatment Future Appointment(s):10/21/2019 4:30 pm - Shania Mcdermott DO at [facility] [id number]/29/2017 - Rene Drew M.D.K40.20 Bilateral inguinal hernia, without obstruction or gangrene, not specified as recurrentComments: Healing well. Pleased. Questions addressed. As needed follow-up. Functional Status Description No Information Available Mental Status Description No Information Available Referrals Description No Information Available
--- OUTSIDE RECORDS SUMMARY | 2019-11-04 17:27 | XMS REPORT | Continuity of Care Document ---
:1960 External Reference #:[id number] Author Name SharronShania DO (transmitted by agent of provider Tara Abdi) Address [address] [place] [id number] Care Team Providers Name Role Phone Kenia Dumont MD - Internal Medicine Care Team Information Loan Approver Problems Active Problems Provider Date Malignant tumor of urinary bladder Shania Mcdermott DO Onset: 06/14/2017 Secondary malignant neoplasm of liver and Francisco Javiermami Shania, DO Onset: 2016 intrahepatic bile duct History of malignant neoplasm of bladder Monroe Walton M.D. Onset: 2016 Primary malignant neoplasm of unspecified Stephenjulieta DO Shania Onset: 2016 site (clinical) Anxiety state StephenShania rendon Onset: 10/21/2019 Chemotherapy changed - patient choice StephenShania rendon Onset: 04/05/2019 Social History Type Date Description [...] Available Vital Signs Date Vital Result Comment 10/21/2019 5:26pm BP Systolic 171 mmHg BP Diastolic 103 mmHg Body Temperature 99.6 F Heart Rate 87 /min Respiratory Rate 20 /min Height 62 inches 5'2" Weight 153.25 lb Pain Level 0 BMI (Body Mass Index) 28.0 kg/m2 BSA (Body Surface Area) 1.71 m2 [place] body weight in kilograms 54 kg O2 % BldC Oximetry 97 % 10/04/2019 1:36pm BP Systolic 151 mmHg BP Diastolic 98 mmHg Body Temperature 98.6 F Heart Rate 71 /min Respiratory Rate 18 /min Weight 157.25 lb Pain Level 0 O2 % BldC Oximetry 100 % Ra Results Test Acquired Facility Test Result H/L Range Note Date Laboratory test 10/04/2019 [facility] Chromogranin A 5 nmol/L 0-5 1, [address] [place], [place] [id number] [phone] CBS W/Automated 10/04/2019 [facility] White Blood 6.8 K/uL Normal 3.4-10.[address] [place] [address] [phone] Red Blood Count 4.67 M/uL Normal 4.20-5.80 [...] 33.0-73.0 Lymph % 38.0 % Normal 20.0-42.0 Jewell % 8.1 % Normal 0.0-10.0 Eo% 1.8 % Normal 0.0-6.6 Bas% 0.9 % Normal 0.0-1.1 Immature Grans 0.3 % Normal 0.0-5.0 NRBC % 0.0 /100WBC < 10/ 100 WBC Neut# 3.45 K/uL Normal 1.8-7.0 Lymph # 2.57 K/uL Normal 1.0-4.0 Jewell # 0.55 K/uL Normal 0.0-0.8 Eos # 0.12 K/uL Normal 0.0-0.5 Baso # 0.06 K/uL Normal 0.0-0.1 Immature Grans Absolute 0.02 K/uL NRBC # 0.00 K/uL Comprehensive Metabolic 10/04/2019 [facility] Glucose 111 mg/dL High 74-[address] [place] [address] [phone] BUN 20 mg/dL High 7-18 Creatinine 1.1 mg/dL Normal 0.6-1.3 Glom Filtration Rate, Estimate >60 mL/min >60 If >60 mL/min >60 3 BUN/Creat 18.1 ratio Sodium 137 mmol/L Normal [...] 60 U/L Normal 45-117 CBS W/Automated 09/06/2019 [facility] White Blood 6.8 K/uL Normal 3.4-10.5 [address] [place] [address] [phone] Red Blood Count 4.28 M/uL Normal 4.20-5.80 [...] 33.0-73.0 Lymph % 38.0 % Normal 20.0-42.0 Jewell % 8.4 % Normal 0.0-10.0 Eo% 1.2 % Normal 0.0-6.6 Bas% 0.6 % Normal 0.0-1.1 Immature Grans 0.1 % Normal 0.0-5.0 NRBC % 0.0 /100WBC < 10/ 100 WBC Neut# 3.52 K/uL Normal 1.8-7.0 Lymph # 2.59 K/uL Normal 1.0-4.0 Jewell # 0.57 K/uL Normal 0.0-0.8 Eos # 0.08 K/uL Normal 0.0-0.5 Baso # 0.04 K/uL Normal 0.0-0.1 Immature Grans Absolute 0.01 K/uL NRBC # 0.00 K/uL [facility] 09/06/2019 [facility] Glucose 103 mg/dL Normal 74-106 Metabolic Panel [address] [place] [address] [phone] BUN 18 mg/dL Normal 7-18 Creatinine 1.1 mg/dL Normal 0.6-1.3 Glom Filtration Rate, Estimate >60 mL/min >60 If >60 mL/min >60 5 BUN/Creat 16.3 ratio Sodium 135 mmol/L Low [...] 53 U/L Normal 45-117 CBS W/Automated 08/09/2019 [facility] White Blood 6.3 K/uL Normal 3.4-10.5 [address] [place] [address] [phone] Red Blood Count 4.32 M/uL Normal 4.20-5.80 [...] 33.0-73.0 Lymph % 41.9 % Normal 20.0-42.0 Jewell % 6.6 % Normal 0.0-10.0 Eo% 1.8 % Normal 0.0-6.6 Bas% 0.8 % Normal 0.0-1.1 Immature Grans 0.3 % Normal 0.0-5.0 NRBC % 0.0 /100WBC < 10/ 100 WBC Neut# 3.04 K/uL Normal 1.8-7.0 Lymph # 2.62 K/uL Normal 1.0-4.0 Jewell # 0.41 K/uL Normal 0.0-0.8 Eos # 0.11 K/uL Normal 0.0-0.5 Baso # 0.05 K/uL Normal 0.0-0.1 Immature Grans Absolute 0.02 K/uL NRBC # 0.00 K/uL Comprehensive Metabolic 08/09/2019 [facility] Glucose 138 mg/dL High 74-[address] [place] [address] [phone] BUN 18 mg/dL Normal 7-18 Creatinine 1.0 mg/dL Normal 0.6-1.3 Glom Filtration Rate, Estimate >60 mL/min >60 If >60 mL/min >60 7 BUN/Creat 18.0 ratio Sodium 136 mmol/L Normal [...] 56 U/L Normal 45-117 CBS W/Automated 07/12/2019 [facility] White Blood 6.0 K/uL Normal 3.4-10.[address] [place] [address] [phone] Red Blood Count 4.13 M/uL Low 4.20-5.80 [...] 33.0-73.0 Lymph % 42.4 % High 20.0-42.0 Jewell % 9.5 % Normal 0.0-10.0 Eo% 1.7 % Normal 0.0-6.6 Bas% 0.5 % Normal 0.0-1.1 Immature Grans 0.3 % Normal 0.0-5.0 NRBC % 0.0 /100WBC < 10/ 100 WBC Neut# 2.75 K/uL Normal 1.8-7.0 Lymph # 2.55 K/uL Normal 1.0-4.0 Jewell # 0.57 K/uL Normal 0.0-0.8 Eos # 0.10 K/uL Normal 0.0-0.5 Baso # 0.03 K/uL Normal 0.0-0.1 Immature Grans Absolute 0.02 K/uL NRBC # 0.00 K/uL Comprehensive 07/12/2019 [facility] Glucose 86 mg/dL Normal 74-106 Metabolic Panel [address] [place] [address] [phone] BUN 18 mg/dL Normal 7-18 Creatinine 1.1 mg/dL Normal 0.6-1.3 Glom Filtration Rate, Estimate >60 mL/min >60 If >60 mL/min >60 8 BUN/Creat 16.3 ratio Sodium 135 mmol/L Low [...] 47 U/L Normal 45-117 CBS W/Automated 06/14/2019 [facility] White Blood 6.6 K/uL Normal 3.4-10.5 [address] [place] [address] [phone] Red Blood Count 4.14 M/uL Low 4.20-5.80 [...] 33.0-73.0 Lymph % 35.2 % Normal 20.0-42.0 Jewell % 6.9 % Normal 0.0-10.0 Eo% 1.5 % Normal 0.0-6.6 Bas% 0.8 % Normal 0.0-1.1 Immature Grans 0.5 % Normal 0.0-5.0 NRBC % 0.0 /100WBC < 10/ 100 WBC Neut# 3.66 K/uL Normal 1.8-7.0 Lymph # 2.34 K/uL Normal 1.0-4.0 Jewell # 0.46 K/uL Normal 0.0-0.8 Eos # 0.10 K/uL Normal 0.0-0.5 Baso # 0.05 K/uL Normal 0.0-0.1 Immature Grans Absolute 0.03 K/uL NRBC # 0.00 K/uL Comprehensive Metabolic 06/14/2019 [facility] Glucose 138 mg/dL High 74-106 Panel [address] [place] [address] [phone] BUN 16 mg/dL Normal 7-18 Creatinine 1.2 mg/dL Normal 0.6-1.3 Glom Filtration Rate, Estimate >60 mL/min >60 If >60 mL/min >60 10 BUN/Creat 13.3 ratio Sodium 137 mmol/L Normal [...] calcium (mass/volume) measurement (mass/volume) Lactic Acid 06/05/2019 [facility] Lactic Acid 1.1 Normal 0.4-1.[address] mmol/[place] [address] [phone] Lab Reflex >2.0 for Sepsis? Y Serum or plasma 06/05/2019 N2N/CCD Import Serum or plasma 1.1 0.4-1.9 lactate lactate measurement measurement (moles/volume) (moles/volume) Laboratory test 06/05/2019 [facility] Legionella Negative Negative [address] [place] [address] [phone] Urine Legionella 06/05/2019 N2N/CCD Import Urine Legionella Negative Negative pneumophila 1 pneumophila 1 antigen detection antigen detection b by immunoassay CBC W/Automated 06/05/2019 [facility] White Blood Count 8.3 K/uL Normal 3.4- 10.[address] [place] [address] [phone] Red Blood Count 4.04 M/uL Low 4.20-5.80 [...] 33.0-73.0 Lymph % 24.1 % Normal 20.0-42.0 Jewell % 8.5 % Normal 0.0-10.0 Eo% 2.3 % Normal 0.0-6.6 Bas% 0.4 % Normal 0.0-1.1 Immature Grans 0.4 % Normal 0.0-5.0 NRBC % 0.0 /100WBC < 10/ 100 WBC Neut# 5.35 K/uL Normal 1.8-7.0 Lymph # 2.00 K/uL Normal 1.0-4.0 Jewell # 0.71 K/uL Normal 0.0-0.8 Eos # 0.19 K/uL Normal 0.0-0.5 Baso # 0.03 K/uL Normal 0.0-0.1 Immature Grans Absolute 0.03 K/uL NRBC # 0.00 K/uL Basic Metabolic Panel 06/05/2019 [facility] Glucose 109 mg/dL High 74-106 [address] [place] [address] [phone] BUN 15 mg/dL Normal 7-18 Creatinine 1.0 mg/dL Normal 0.6-1.3 Glom Filtration Rate, Estimate >60 mL/min >60 If >60 mL/min >60 13 BUN/Creat 15.0 ratio Sodium 142 mmol/L Normal [...] 33.0- 73.0 neutrophils/100 neutrophils/100 leukocytes leukocytes Automated blood 06/05/2019 N2N/CCD Import Automated blood 24.1 20.0- 42.0 lymphocytes/100 lymphocytes/100 leukocytes leukocytes Automated 06/05/2019 N2N/CCD Import Automated 2.3 0.0-6.6 eosinophil % eosinophil % Automated monocyte 06/05/2019 N2N/CCD Import Automated monocyte 8.5 0.0- 10.0 % % Automated urine 06/04/2019 N2N/CCD Import Automated urine 2-5 0-2 sediment sediment erythrocyte count erythrocyte count by micr by microscopy (number/high power field) Urine nitrite 06/04/2019 N2N/CCD Import Urine nitrite Negative Negative detection by detection by automated test automated test strip strip Urine glucose 06/04/2019 N2N/CCD Import Urine glucose Negative Negative measurement by measurement by automated test automated test strip strip (mass/volume) Aot Request 06/04/2019 [facility] Aot Request Test(s) [address] added [place], [place] [id number] [phone] Tests to be added: CRP, MAGNESIUM Epithelial cells 06/04/2019 N2N/CCD Import Epithelial cells Very Few None Seen detection in detection in urine sediment by urine sediment li by light microscopy Urine ketones 06/04/2019 N2N/CCD Import Urine ketones Negative Negative measurement by measurement by automated test automated test strip strip (mass/volume) Blood Culture 06/04/2019 [facility] Blood Culture NO GROWTH: [address] Aerobic FINAL <[place] [address] NOTE> [phone] Blood Culture Anaerobic NO GROWTH: FINAL <SEE NOTE> 16 Laboratory test 06/04/2019 [facility] Magnesium 2.0 mg/dL Normal 1.8-2.4 [address] [place], [place] [id number] [phone] CK 105 U/L Normal 39-308 18 Troponin-I < 0.015 ng/mL 19 C-Reactive Protein,Quant 6.1 mg/L High <3.0 20 Serum or plasma 06/04/2019 N2N/CCD Import Serum or plasma 58 45-117 alkaline alkaline phosphatase phosphatase measurement (enzymatic measurement ( activity/volume) Blood Culture 06/04/2019 [facility] Blood Culture Aerobic NO GROWTH: [address] FINAL <[place] [address] NOTE> [phone] Blood Culture Anaerobic NO GROWTH: FINAL <SEE NOTE> 22 Urine leukocyte 06/04/2019 N2N/CCD Import Urine leukocyte Negative Negative esterase detection esterase by automated te detection by automated test strip Urine hemoglobin 06/04/2019 N2N/CCD Import Urine hemoglobin Small High Negative detection by detection by automated test automated test strip strip Serum or plasma 06/04/2019 N2N/CCD Import Serum or plasma 3.9 3.4-5.0 albumin measurement albumin (mass/volume) measurement (mass/volume) Urine sediment 06/04/2019 N2N/CCD Import Urine sediment 0-2 0-7 leukocyte count by leukocyte count microscopy (numb by microscopy (number/high power field) Urine total 06/04/2019 N2N/CCD Import Urine total Negative Negative bilirubin detection bilirubin by automated test detection by automated test strip Bacteria detection 06/04/2019 N2N/CCD Import Bacteria Very Few None Seen in urine sediment detection in by light micr urine sediment by light microscopy Comprehensive 06/04/2019 [facility] Glucose 112 mg/dL High 74-106 Metabolic Panel [address] [place] [address] [phone] BUN 18 mg/dL Normal 7-18 Creatinine 1.2 mg/dL Normal 0.6-1.3 Glom Filtration Rate, Estimate >60 mL/min >60 If >60 mL/min >60 23 BUN/Creat 15.0 ratio Sodium 136 mmol/L Normal [...] Miscellaneous Test(s) studies (set) studies (set) added Urine pH 06/04/2019 N2N/CCD Import Urine pH 6.5 6.5-7.5 measurement by measurement by automated test automated test strip strip Serum globulin 06/04/2019 N2N/CCD Import Serum globulin 4.3 1.9-4.3 measurement by measurement by calculation calculation (mass/vo (mass/volume) Serum or plasma 06/04/2019 N2N/CCD Import Serum or plasma 0.9 albumin/globulin albumin/globulin mass ratio mass ratio Serum or plasma 06/04/2019 N2N/CCD Import Serum or plasma 28 12-78 alanine alanine aminotransferase aminotransferase measureme measurement (enzymatic activity/volume) Urine 06/04/2019 N2N/CCD Import Urine 0.2 0.2-1.0 urobilinogen urobilinogen measurement measurement (units/volume) by (units/volume) t by test strip Urine appearance 06/04/2019 N2N/CCD Import Urine appearance Clear Clear determination determination Serum or plasma 06/04/2019 N2N/CCD Import Serum or plasma 0.8 0.2-1.0 total bilirubin total bilirubin measurement measurement (mass/ (mass/volume) Laboratory test 06/04/2019 [facility] Lactic Acid 3.0 Critical 0.4-1.[address] mmol/[place] [address] [phone] Urine color 06/04/2019 N2N/CCD Import Urine color Straw Yellow determination determination Urine protein 06/04/2019 N2N/CCD Import Urine protein Negative Negative measurement by measurement by automated test automated test strip strip (mass/volume) Serum or plasma 06/04/2019 N2N/CCD Import Serum or plasma 37 15-37 aspartate aspartate aminotransferase aminotransferase measure measurement (enzymatic activity/volume) CBS W/Automated 05/10/2019 [facility] White Blood 7.0 K/uL Normal 3.4-10.5 [address] [place] [address] [phone] Red Blood Count 4.15 M/uL Low 4.20-5.80 [...] 33.0-73.0 Lymph % 37.1 % Normal 20.0-42.0 Jewell % 8.4 % Normal 0.0-10.0 Eo% 1.3 % Normal 0.0-6.6 Bas% 0.6 % Normal 0.0-1.1 Immature Grans 0.3 % Normal 0.0-5.0 NRBC % 0.0 /100WBC < 10/ 100 WBC Neut# 3.69 K/uL Normal 1.8-7.0 Lymph # 2.61 K/uL Normal 1.0-4.0 Jewell # 0.59 K/uL Normal 0.0-0.8 Eos # 0.09 K/uL Normal 0.0-0.5 Baso # 0.04 K/uL Normal 0.0-0.1 Immature Grans Absolute 0.02 K/uL NRBC # 0.00 K/uL Comprehensive Metabolic 05/10/2019 [facility] Glucose 109 mg/dL High 74-106 Panel [address] [place] [address] [phone] BUN 19 mg/dL High 7-18 Creatinine 1.0 mg/dL Normal 0.6-1.3 Glom Filtration Rate, Estimate >60 mL/min >60 If >60 mL/min >60 25 BUN/Creat 19.0 ratio Sodium 135 mmol/L Low [...] 12-78 Alkaline Phosphatase 51 U/L Normal 45-117 1 C7A.00 C78.7 Z51.11 C67.9 2 Chromogranin A performed by [employer]. Values obtained with different assay methods or kits cannot be used interchangeably. Test(s) [id number] results are labeled for research purposes only by the assay's night shift manager. The performance characteristics of this assay have not been established by the night shift manager. The result should not be used for treatment or for diagnostic purposes without confirmation of the diagnosis by another medically established diagnostic product or procedure. The performance characteristics were determined by [employer]. Performed at: [address] [id number] [address] Justice: Silvestre Copeland MD, Phone: [phone] 3 Note: Persistent reduction for 3 months or more in an eGFR <60 mL/min/1.73 m2 defines CKD. Patients with eGFR values >/=60 mL/min/1.73 m2 may also have CKD if evidence of persistent proteinuria is present. The original MDRD equation for estimated GFR is not valid for patients less than 18 years of age. Additional information may be found at www.[email or web address]. 4 C7A.00 C78.7 5 Note: Persistent reduction for 3 months or more in an eGFR <60 mL/min/1.73 m2 defines CKD. Patients with eGFR values >/=60 mL/min/1.73 m2 may also have CKD if evidence of persistent proteinuria is present. The original MDRD equation for estimated GFR is not valid for patients less than 18 years of age. Additional information may be found at www.[email or web address]. 6 C7A.00 C78.7 Z51.11 C67.9 7 Note: Persistent reduction for 3 months or more in an eGFR <60 mL/min/1.73 m2 defines CKD. Patients with eGFR values >/=60 mL/min/1.73 m2 may also have CKD if evidence of persistent proteinuria is present. The original MDRD equation for estimated GFR is not valid for patients less than 18 years of age. Additional information may be found at www.[facility].org. 8 Note: Persistent reduction for 3 months or more in an eGFR <60 mL/min/1.73 m2 defines CKD. Patients with eGFR values >/=60 mL/min/1.73 m2 may also have CKD if evidence of persistent proteinuria is present. The original MDRD equation for estimated GFR is not valid for patients less than 18 years of age. Additional information may be found at www.[email or web address]. 9 C7A.00 C78.7 Z85.81 C67.9 10 Note: Persistent reduction for 3 months or more in an eGFR <60 mL/min/1.73 m2 defines CKD. Patients with eGFR values >/=60 mL/min/1.73 m2 may also have CKD if evidence of persistent proteinuria is present. The original MDRD equation for estimated GFR is not valid for patients less than 18 years of age. Additional information may be found at www.[facility].org. 11 LACTIC ACIDOSIS 12 Presumptive negative for L. pneumophila serogroup 1 antigen in urine, suggesting no recent or current infection. Legionnaires' disease cannot be ruled out since other serogroups and species may also cause disease. 13 Note: Persistent reduction for 3 months or more in an eGFR <60 mL/min/1.73 m2 defines CKD. Patients with eGFR values >/=60 mL/min/1.73 m2 may also have CKD if evidence of persistent proteinuria is present. The original MDRD equation for estimated GFR is not valid for patients less than 18 years of age. Additional information may be found at www.[facility].org. 14 Tests: CRP, MAGNESIUM Instructions: 15 NO GROWTH: FINAL REPORT 16 NO GROWTH: FINAL REPORT 17 Specimen slightly Hemolyzed, interpret with caution 18 Specimen slightly Hemolyzed, interpret with caution 19 0.0 - 0.045 ng/mL: Normal 0.046 - 0.5 ng/mL: Suggestive 0.6 - 1.5 ng/mL: Consistent 20 Specimen slightly Hemolyzed, interpret with caution 21 NO GROWTH: FINAL REPORT 22 NO GROWTH: FINAL REPORT 23 Note: Persistent reduction for 3 months or more in an eGFR <60 mL/min/1.73 m2 defines CKD. Patients with eGFR values >/=60 mL/min/1.73 m2 may also have CKD if evidence of persistent proteinuria is present. The original MDRD equation for estimated GFR is not valid for patients less than 18 years of age. Additional information may be found at www.[email or web address]. 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 Office Visit 08/09/2019 1:30p [facility] C7A.00 Malignant Olga B., SECURITY SCREENER carcinoid tumor of unspecified site 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 Office Visit 07/12/2019 1:00p [facility] C7A.00 Malignant Olga B., SECURITY SCREENER carcinoid tumor of unspecified site Office Visit 06/14/2019 1:30p [facility]fusion [facility], C7A.00 Malignant Olga B., SECURITY SCREENER carcinoid tumor of unspecified site 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 Office Visit 05/10/2019 1:30p [facility] C7A.00 Malignant Olga B., SECURITY SCREENER carcinoid tumor of unspecified site 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 Assessments Date Code Description Provider 10/21/2019 C7A.00 Malignant carcinoid tumor of unspecified Shania Mcdermott , DO site 10/21/2019 C67.9 Malignant neoplasm of bladder, unspecified Shania Mcdermott , DO 10/21/2019 F41.9 Anxiety disorder, unspecified Shania Mcdermott, DO 10/04/2019 C7A.00 Malignant carcinoid tumor of unspecified Dingle, Olga B., SECURITY SCREENER site 10/04/2019 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 Dingle, Olga B., SECURITY SCREENER intrahepatic bile duct 09/06/2019 C7A.00 Malignant carcinoid tumor of unspecified Luis Felipe, Olga B., SECURITY SCREENER site 09/06/2019 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 Luis Felipe, Olga B., SECURITY SCREENER intrahepatic bile duct 08/09/2019 C7A.00 Malignant carcinoid tumor of unspecified Dingle, Olga B., SECURITY SCREENER site 08/09/2019 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 Luis Felipe, Olga B., SECURITY SCREENER intrahepatic bile duct 07/12/2019 C7A.00 Malignant carcinoid tumor of unspecified Dingle, Olga B., SECURITY SCREENER site 06/14/2019 C7A.00 Malignant carcinoid tumor of unspecified Dingle, Olga B., SECURITY SCREENER site 06/14/2019 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 Dingle, Olga B., SECURITY SCREENER intrahepatic bile duct 06/05/2019 R65.10 Systemic inflammatory [...] Malignant carcinoid tumor of unspecified Olga Briscoe, GENA site 05/10/2019 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 Olga Briscoe NP intrahepatic bile Plan of Treatment 03/29/2017 - Rene Drew M.D.K40.20 Bilateral inguinal hernia, without obstruction or gangrene, not specified as recurrentComments:Healing well. Pleased. Questions addressed. As needed follow-up. Functional Status Description No Information Available Mental Status Description No Information Available Referrals Description No Information Available
--- OUTSIDE RECORDS SUMMARY | 2019-11-04 17:27 | XMS REPORT | Continuity of Care Document ---
:1960 External Reference #:[id number] Author Name Kenia Dumont M.D. (transmitted by agent of provider Lucy Hwang) Address [address] [place] [address] Problems Active Problems Provider Date Hematuria syndrome Kenia Dumont M.D. Onset: 03/09/2011 Social History Type Date Description Comments Sex Unknown Tobacco Use Start: Unknown Denies Smoking ETOH Use Denies alcohol use Tobacco Use Start: Unknown Patient has never smoked Smoking Status Reviewed: 06/20/18 Patient has never smoked Allergies, Adverse Reactions, Alerts Active Allergies Reaction Severity Comments Date Bactrim 02/28/2007 Cipro 04/18/2011 Medications Active Medications SIG Qnty Indications Ordering Date Provider Sphygmomanometer as directed 1units I11.9 Kenia Dumont, 06/26/2019 Aneroid Manual Blood M.D. Pressure Monitor [facility] Amlodipine Besylate 1 by mouth every 90tabs Kenia Dumont, 10/02/2017 5mg day M.D. Tablets Clonidine Apply 1 Patch 12units I11.9 Kenia Dumont, 09/25/2017 0.1mg/24HR Externally To The M.D. Patches Weekly Skin Weekly Lisinopril Take 1 Tablet By 90tabs I11.9 Kenia Dumont, 08/02/2017 40mg Tablets Mouth Every Day M.D. Metoprolol Tartrate 1 by mouth twice 180tabs I11.9 Kenia Dumont, 08/02/2017 50mg a day M.D. Tablets History Medications Azithromycin 2 by mouth 6tabs J02.9 Kenia Dumont, 05/29/2019 - 250mg today, 1 by M.D. 06/26/2019 Tablets mouth day 2 thru 5 Medications Administered in Office Medication SIG Qnty Indications Ordering Provider Date Office Emergency Care Kenia Dumont M.D. 06/04/2019 Injection Immunizations CPT Code Status Date Vaccine Lot # [id number] Given 07/29/2019 Influenza Virus (Quadrivalent)Splitvirus 3 [id number] Years Of Age And Older Q2035 Given 07/29/2019 Influenza Virus (Quadrivalent)Splitvirus 3 Years Of Age And Older Vital Signs Date Vital Result Comment 09/24/2019 11:32am BP Systolic 138 mmHg BP Diastolic 90 mmHg Heart Rate 72 /min Respiratory Rate 16 /min Height 64 inches 5'4" Weight 155.00 lb BMI (Body Mass Index) 26.6 kg/m2 O2 % BldC Oximetry 98 % 08/12/2019 2:19pm BP Systolic 142 mmHg BP Diastolic 102 mmHg BP Systolic Recheck 128 mmHg no amlodipine yet BP Diastolic Recheck 90 mmHg no amlodipine yet Heart Rate 75 /min Height 63 inches 5'3" Weight 156.00 lb BMI (Body Mass Index) 27.6 kg/m2 Results Test Acquired Date Facility Test Result H/L Range Note CBS 08/06/2019 [facility] White Blood 6.8 K/uL Normal 3.4-10.5 1 W/Automated [address] Count Diff [place], [place] [id number] [phone] Red Blood Count 4.35 M/uL Normal 4.20-5.80 Hemoglobin 14.9 gm/dL Normal 12.8-17.0 Hematocrit 42.0 % Normal 38.0-48.0 Mean Cell Volume 96.6 fl High 80.0-96.0 Mean Corpuscular HGB 34.3 pg High 27.0-33.0 Mean Corpuscular HGB Conc 35.5 g/dL Normal 31.7-36.0 Platelet Count 228 K/uL Normal 155-360 Red Cell Distri Width SD 42.5 fl Normal 36-51 Red Cell Distri Width %CV 12.1 % Normal 11.6-15.8 Mean Platelet Volume 10.2 fl Normal 6.6-10.6 Neut% 48.7 % Normal 33.0-73.0 Lymph % 40.6 % Normal 20.0-42.0 [place] % 8.1 % Normal 0.0-10.0 Eo% 1.5 % Normal 0.0-6.6 Bas% 0.7 % Normal 0.0-1.1 Immature Grans 0.4 % Normal 0.0-5.0 NRBC % 0.0 /100WBC < 10/ 100 WBC Neut# 3.30 K/uL Normal 1.8-7.0 Lymph # 2.76 K/uL Normal 1.0-4.0 [place] # 0.55 K/uL Normal 0.0-0.8 Eos # 0.10 K/uL Normal 0.0-0.5 Baso # 0.05 K/uL Normal 0.0-0.1 Immature Grans Absolute 0.03 K/uL NRBC # 0.00 K/uL Comprehensive 08/06/2019 [facility] Glucose 104 mg/ dL Normal 74-106 Metabolic Panel [address] [place] [address] [phone] BUN 28 mg/dL High 7-18 Creatinine 1.1 mg/dL Normal 0.6-1.3 Glom Filtration Rate, Estimate >60 mL/min >60 If >60 mL/min >60 2 BUN/Creat 25.4 ratio Sodium 140 mmol/L Normal 136-145 Potassium 4.0 mmol/L Normal 3.5-5.1 Chloride 104 mmol/L Normal 98-107 Carbon Dioxide 29 mmol/L Normal 21-32 Anion Gap 7 mEq/L Low 8-16 Calcium 8.8 mg/dL Normal 8.5-10.1 Total Protein 8.4 g/dL High 6.4-8.2 Albumin 4.0 g/dL Normal 3.4-5.0 Globulin 4.4 g/dL High 1.9-4.3 Alb/Glob 0.9 ratio Bilirubin,Total 0.4 mg/dL Normal 0.2-1.0 Sgot/Ast 19 U/L Normal 15-37 SGPT/Alt 23 U/L Normal 12-78 Alkaline Phosphatase 62 U/L Normal 45-117 Laboratory test 08/06/2019 [facility] Troponin-I < 0.015 [address] ng/[place] [address] [phone] CBS W/Automated 06/05/2019 [facility] White Blood 8.3 K/uL Normal 3.4-1 [address] Count 0.5 [place] [address] [phone] Red Blood Count 4.04 M/uL Low 4.20-5.80 [...] 33.0-73.0 Lymph % 24.1 % Normal 20.0-42.0 [place] % 8.5 % Normal 0.0-10.0 Eo% 2.3 % Normal 0.0-6.6 Bas% 0.4 % Normal 0.0-1.1 Immature Grans 0.4 % Normal 0.0-5.0 NRBC % 0.0 /100WBC < 10/ 100 WBC Neut# 5.35 K/uL Normal 1.8-7.0 Lymph # 2.00 K/uL Normal 1.0-4.0 [place] # 0.71 K/uL Normal 0.0-0.8 Eos # 0.19 K/uL Normal 0.0-0.5 Baso # 0.03 K/uL Normal 0.0-0.1 Immature Grans Absolute 0.03 K/uL NRBC # 0.00 K/uL Basic Metabolic 06/05/2019 [facility] Glucose 109 mg/ dL High 74-[address] [place], [place] [id number] [phone] BUN 15 mg/dL Normal 7-18 Creatinine 1.0 mg/dL Normal 0.6-1.3 Glom Filtration Rate, Estimate >60 mL/min >60 If >60 mL/min >60 5 BUN/Creat 15.0 ratio Sodium 142 mmol/L Normal 136-145 Potassium 3.9 mmol/L Normal 3.5-5.1 Chloride 108 mmol/L High 98-107 Carbon Dioxide 28 mmol/L Normal 21-32 Anion Gap 6 mEq/L Low 8-16 Calcium 8.5 mg/dL Normal 8.5-10.1 Lactic Acid 06/05/2019 [facility] Lactic Acid 1.1 mmol/L Normal 0.4-1.[address] [place] [address] [phone] Lab Reflex >2.0 for Sepsis? Y Laboratory 06/05/2019 [facility] Legionella Negative Negative 6 test finding [address] [place] [address] Antigen [phone] Laboratory 06/04/2019 [facility] CK 105 U/L Normal 39-308 7, 8 test finding [address] [place] [address] [phone] Troponin-I < 0.015 ng/mL 9 Magnesium 2.0 mg/dL Normal 1.8-2.4 10 C-Reactive Protein,Quant 6.1 mg/L High <3.0 11 Comprehensive 06/04/2019 [facility] Glucose 112 mg/ dL High 74-106 Metabolic Panel [address] [place] [address] [phone] BUN 18 mg/dL Normal 7-18 Creatinine 1.2 mg/dL Normal 0.6-1.3 Glom Filtration Rate, Estimate >60 mL/min >60 If >60 mL/min >60 12 BUN/Creat 15.0 ratio Sodium 136 mmol/L Normal [...] 12-78 Alkaline Phosphatase 58 U/L Normal 45-117 CBS W/Automated 06/04/2019 [facility] White Blood 11.6 K/uL High 3.4-10.[address] Count [place] [id number] [phone] Red Blood Count 4.35 M/uL Normal 4.20-5.80 Hemoglobin 14.5 gm/dL Normal 12.8-17.0 Hematocrit 41.4 % Normal 38.0-48.0 Mean Cell Volume 95.2 fl Normal 80.0-96.0 Mean Corpuscular HGB 33.3 pg High 27.0-33.0 Mean Corpuscular HGB Conc 35.0 g/dL Normal 31.7-36.0 Platelet Count 175 K/uL Normal 155-360 Red Cell Distri Width SD 42.1 fl Normal 36-51 Red Cell Distri Width %CV 12.1 % Normal 11.6-15.8 Mean Platelet Volume 11.0 fl High 6.6-10.6 Neut% 91.0 % High 33.0-73.0 Lymph % 4.1 % Low 20.0-42.0 [place] % 4.0 % Normal 0.0-10.0 Eo% 0.3 % Normal 0.0-6.6 Bas% 0.2 % Normal 0.0-1.1 Immature Grans 0.4 % Normal 0.0-5.0 NRBC % 0.0 /100WBC < 10/ 100 WBC Neut# 10.51 K/uL High 1.8-7.0 Lymph # 0.47 K/uL Low 1.0-4.0 [place] # 0.46 K/uL Normal 0.0-0.8 Eos # 0.04 K/uL Normal 0.0-0.5 Baso # 0.02 K/uL Normal 0.0-0.1 Immature Grans Absolute 0.05 K/uL NRBC # 0.00 K/uL Blood Culture 06/04/2019 [facility] Blood Culture NO GROWTH: 13, [address] Aerobic FINAL <[place] [address] NOTE> [phone] Blood Culture Anaerobic NO GROWTH: FINAL <SEE NOTE> 15 Lactic 06/04/2019 [facility] Lactic 3.2 mmol/L Critical 0.4-1.9 16, [address] Acid high [place], [place] [id number] [phone] Lab Reflex >2.0 for Sepsis? Y Urinalysis With 06/04/2019 [facility] Urine Color STRAW Yellow Microscopic [address] [place], [place] [address] [phone] Urine Clarity CLEAR Clear Urine Glucose - Dipstick NEGATIVE mg/dL Negative Urine Bilirubin - Dipstick NEGATIVE Negative Urine Ketone NEGATIVE mg/dL Negative Urine Specific [place] <= 1.005 Low 1.010-1.030 Urine Blood SMALL Abnormal Negative Urine PH 6.5 Normal 6.5-7.5 Urine Protein - Dipstick NEGATIVE mg/dL Negative Urine Urobilinogen - Dipstick 0.2 E.U./dL Normal 0.2-1.0 Urine Nitrite - Dipstick NEGATIVE Negative Urine Leuk Esterase NEGATIVE Negative Urine RBC 2-5 rbc/hpf 0-2 Urine WBC 0-2 wbc/hpf 0-7 Urine Epithelial Cells VERY FEW /lpf None Seen Urine Bacteria VERY FEW None Seen Source: URINE, CLEAN CAT <SEE NOTE> 18 Aot Request 06/04/2019 [facility] Aot Request Test(s ) added 19, [address] [place], [place] [address] [phone] Tests to be added: CRP, MAGNESIUM Blood Culture 06/04/2019 [facility] Blood Culture NO GROWTH: [address] Aerobic FINAL <[place] [address] NOTE> [phone] Blood Culture Anaerobic NO GROWTH: FINAL <SEE NOTE> 22 Laboratory test 06/04/2019 [facility] Lactic 3.0 Critical 0.4-1.[address] Acid mmol/L high [place], [place] [address]80 [phone] Urinalysis With 04/27/2019 [facility] Urine YELLOW Yellow [address] Color [place], [place] [address] [phone] Urine Clarity CLEAR Clear Urine Glucose - Dipstick NEGATIVE mg/dL Negative Urine Bilirubin - Dipstick NEGATIVE Negative Urine Ketone NEGATIVE mg/dL Negative Urine Specific [place] <= 1.005 Low 1.010-1.030 Urine Blood SMALL Abnormal Negative Urine PH 6.5 Normal 6.5-7.5 Urine Protein - Dipstick NEGATIVE mg/dL Negative Urine Urobilinogen - Dipstick 0.2 E.U./dL Normal 0.2-1.0 Urine Nitrite - Dipstick NEGATIVE Negative Urine Leuk Esterase NEGATIVE Negative Urine RBC 2-5 rbc/hpf 0-2 Urine WBC 0-2 wbc/hpf 0-7 Urine Epithelial Cells VERY FEW /lpf None Seen Urine Bacteria VERY FEW None Seen Source: URINE, CLEAN CAT <SEE NOTE> 24 CBS W/Automated 04/27/2019 [facility] White 5.4 K/uL Normal 3.4-10.[address] [place] [address] Count [phone] Red Blood Count 4.30 M/uL Normal 4.20-5.80 Hemoglobin 14.7 gm/dL Normal 12.8-17.0 Hematocrit 41.9 % Normal 38.0-48.0 Mean Cell Volume 97.4 fl High 80.0-96.0 Mean Corpuscular HGB 34.2 pg High 27.0-33.0 Mean Corpuscular HGB Conc 35.1 g/dL Normal 31.7-36.0 Platelet Count 233 K/uL Normal 155-360 Red Cell Distri Width SD 44.2 fl Normal 36-51 Red Cell Distri Width %CV 12.4 % Normal 11.6-15.8 Mean Platelet Volume 10.5 fl Normal 6.6-10.6 Neut% 57.3 % Normal 33.0-73.0 Lymph % 30.1 % Normal 20.0-42.0 [place] % 8.3 % Normal 0.0-10.0 Eo% 3.3 % Normal 0.0-6.6 Bas% 0.6 % Normal 0.0-1.1 Immature Grans 0.4 % Normal 0.0-5.0 NRBC % 0.0 /100WBC < 10/ 100 WBC Neut# 3.10 K/uL Normal 1.8-7.0 Lymph # 1.63 K/uL Normal 1.0-4.0 [place] # 0.45 K/uL Normal 0.0-0.8 Eos # 0.18 K/uL Normal 0.0-0.5 Baso # 0.03 K/uL Normal 0.0-0.1 Immature Grans Absolute 0.02 K/uL NRBC # 0.00 K/uL 1 BP ELEVATED,FREEZING,RINGING IN EARS 2 Note: Persistent reduction for 3 months or more in an eGFR <60 mL/min/1.73 m2 defines CKD. Patients with eGFR values >/=60 mL/min/1.73 m2 may also have CKD if evidence of persistent proteinuria is present. The original MDRD equation for estimated GFR is not valid for patients less than 18 years of age. Additional information may be found at www.kdoqi.org. 3 0.0 - 0.045 ng/mL: Normal 0.046 - 0.5 ng/mL: Suggestive 0.6 - 1.5 ng/mL: Consistent 4 LACTIC ACIDOSIS 5 Note: Persistent reduction for 3 months or more in an eGFR <60 mL/min/1.73 m2 defines CKD. Patients with eGFR values >/=60 mL/min/1.73 m2 may also have CKD if evidence of persistent proteinuria is present. The original MDRD equation for estimated GFR is not valid for patients less than 18 years of age. Additional information may be found at www.kdoqi.org. 6 Presumptive negative for L. pneumophila serogroup 1 antigen in urine, suggesting no recent or current infection. Legionnaires' disease cannot be ruled out since other serogroups and species may also cause disease. 7 DIZZY, COLD CHILLS, HIGH BP?, SENT BY 8 Specimen slightly Hemolyzed, interpret with caution 9 0.0 - 0.045 ng/mL: Normal 0.046 - 0.5 ng/mL: Suggestive 0.6 - 1.5 ng/mL: Consistent 10 Specimen slightly Hemolyzed, interpret with caution 11 Specimen slightly Hemolyzed, interpret with caution 12 Note: Persistent reduction for 3 months or more in an eGFR <60 mL/min/1.73 m2 defines CKD. Patients with eGFR values >/=60 mL/min/1.73 m2 may also have CKD if evidence of persistent proteinuria is present. The original MDRD equation for estimated GFR is not valid for patients less than 18 years of age. Additional information may be found at www.kdoqi.org. 13 LACTIC ACIDOSIS 14 NO GROWTH: FINAL REPORT 15 NO GROWTH: FINAL REPORT 16 DIZZY, COLD CHILLS, HIGH BP?, SENT BY 17 Specimen slightly Hemolyzed, interpret with caution 18 URINE, CLEAN CATCH 19 LACTIC ACIDOSIS 20 Tests: CRP, MAGNESIUM Instructions: 21 NO GROWTH: FINAL REPORT 22 NO GROWTH: FINAL REPORT 23 ABD PAIN 24 URINE, CLEAN CATCH Procedures Description No Information Available Medical Devices Description No Information Available Encounters Type Date Location Provider Dx Diagnosis Office Visit 08/12/2019 Main Office Kenia Dumont M.D. I11.9 Hypertensive heart 2:15p disease without heart failure Office Visit 07/29/2019 Main Office Kenia Dumont M.D. I11.9 Hypertensive heart 1:30p disease without heart failure Z23 Encounter for immunization Office Visit 06/26/2019 1:30p Main Office Kenia Dumont I11.9 Hypertensive heart M.D. disease without heart failure Office Visit 06/11/2019 10:45a Main Office Kenia Dumont E86.0 Dehydration M.D. R50.9 Fever, unspecified I11.9 Hypertensive heart disease without heart failure Office Visit 06/04/2019 11:00a Main Office Kenia Dumont M.D. E86.0 Dehydration J09.x9 Flu due to ident novel influenza A virus w oth manifest Office Visit 05/29/2019 11:15a Main Office Kenia Dumont I11.9 Hypertensive heart M.D. disease without heart failure J02.9 Acute pharyngitis, unspecified Office Visit 05/01/2019 2:00p Main Office Kenia Dumont I11.9 Hypertensive heart M.D. disease without heart failure C67.9 Malignant neoplasm of bladder, unspecified R10.30 Lower abdominal pain, unspecified Assessments Date Code Description Provider 08/12/2019 I11.9 Hypertensive heart disease without heart failure Kenia Dumont M.D. 07/29/2019 I11.9 Hypertensive heart disease without heart failure Kenia Dumont M.D. 07/29/2019 Z23 Encounter for immunization Kenia Dumont M.D. 06/26/2019 I11.9 Hypertensive heart disease without heart failure Kenia Dumont M.D. 06/11/2019 E86.0 Dehydration Kenia Dumont M.D. 06/11/2019 R50.9 Fever, unspecified Kenia Dumont M.D. 06/11/2019 I11.9 Hypertensive heart disease without heart failure Kenia Dumont M.D. 06/04/2019 E86.0 Dehydration Kenia Duomnt M.D. 06/04/2019 J09.x9 Influenza due to identified novel influenza A Kenia Dumont M.D. virus with other manifestations 05/29/2019 I11.9 Hypertensive heart disease without heart failure Kenia Dumont M.D. 05/29/2019 J02.9 Acute pharyngitis, unspecified Kenia Dumont M.D. 05/01/2019 I11.9 Hypertensive heart disease without heart failure Kenia Dumont M.D. 05/01/2019 C67.9 Malignant neoplasm of bladder, unspecified Kenia Dumont M.D. 05/01/2019 R10.30 Lower abdominal pain, unspecified Kenia Dumont M.D. Plan of Treatment Future Appointment(s):01/14/2020 8:00 am - Nurse at Main Rltwyg0801/27/2020 10: 30 am - Kenia Dumont M.D. at Main Woaaqn0206/26/2019 - Kenia Dumont M.D.I11.9 Hypertensive heart disease without heart failureNew Medication:Sphygmomanometer Aneroid Manual Blood Pressure Monitor - as directedComments:Continue with medication as directed. Reminded of regular exercise and the need to self monitor blood pressure regularly To call office with persistently elevated blood pressures mother aunt bartolo been sick recently he had episode of sepsis did talk about stress and effect on blood pressure he is trying to follow a low salt diet Functional Status Description No Information Available Mental Status Description No Information Available Referrals Description No Information Available
--- OUTSIDE RECORDS SUMMARY | 2019-11-04 17:27 | XMS REPORT | Continuity of Care Document ---
:1960 External Reference #:[id number] Author Name Kenia Dumont M.D. (transmitted by agent of provider Leatha Welch) Address [address] [place] [address] Problems Active Problems Provider Date Hematuria syndrome [...] 06/26/2019 Aneroid Manual Blood M.D. Pressure Monitor [facility] Amlodipine Besylate 1 by mouth every 90tabs [...] Q2035 Given 07/29/2019 Influenza Virus (Quadrivalent)Splitvirus 3 [id number] Years Of Age And Older Q2035 Given 07/29/2019 Influenza Virus (Quadrivalent)Splitvirus 3 Years Of Age And Older Vital Signs Date Vital Result Comment 09/24/2019 11:32am BP Systolic 138 mmHg BP Diastolic 90 mmHg BP Systolic Recheck 134 mmHg BP Diastolic Recheck 88 mmHg Heart Rate 72 /min Respiratory Rate [...] Test Result H/L Range Note CBS 08/06/2019 [facility] White Blood 6.8 K/uL Normal 3.4-10.5 1 W/Automated [address] [place] [address] [phone] Red Blood Count 4.35 M/uL Normal 4.20-5.80 [...] Lymph % 40.6 % Normal 20.0-42.0 [place] % 8.1 % Normal 0.0-10.0 Eo% 1.5 % Normal 0.0-6.6 Bas% 0.7 % Normal 0.0-1.1 Immature Grans 0.4 % Normal 0.0-5.0 NRBC % 0.0 /100WBC < 10/ 100 WBC Neut# 3.30 K/uL Normal 1.8-7.0 Lymph # 2.76 K/uL Normal 1.0-4.0 [place] # 0.55 K/uL Normal 0.0-0.8 Eos # 0.10 K/uL Normal 0.0-0.5 Baso # 0.05 K/uL Normal 0.0-0.1 Immature Grans Absolute 0.03 K/uL NRBC # 0.00 K/uL Comprehensive 08/06/2019 [facility] Glucose 104 mg/ dL Normal 74-106 Metabolic Panel [address] [place] [address] [phone] BUN 28 mg/dL High 7-18 Creatinine 1.1 [...] 62 U/L Normal 45-117 Laboratory test 08/06/2019 [facility] Troponin-I < 0.015 [address] ng/[place] [address] [phone] CBS W/Automated 06/05/2019 [facility] White Blood 8.3 K/uL Normal 3.4-1 [address] Count 0.5 [place] [address] [phone] Red Blood Count 4.04 M/uL Low 4.20-5.80 [...] Lymph % 24.1 % Normal 20.0-42.0 [place] % 8.5 % Normal 0.0-10.0 Eo% 2.3 % Normal 0.0-6.6 Bas% 0.4 % Normal 0.0-1.1 Immature Grans 0.4 % Normal 0.0-5.0 NRBC % 0.0 /100WBC < 10/ 100 WBC Neut# 5.35 K/uL Normal 1.8-7.0 Lymph # 2.00 K/uL Normal 1.0-4.0 [place] # 0.71 K/uL Normal 0.0-0.8 Eos # 0.19 K/uL Normal 0.0-0.5 Baso # 0.03 K/uL Normal 0.0-0.1 Immature Grans Absolute 0.03 K/uL NRBC # 0.00 K/uL Basic Metabolic 06/05/2019 [facility] Glucose 109 mg/ dL High 74-[address] [place] [address] [phone] BUN 15 mg/dL Normal 7-18 Creatinine 1.0 mg/dL Normal 0.6-1.3 Glom Filtration Rate, Estimate >60 mL/min >60 If >60 mL/min >60 5 BUN/Creat 15.0 ratio Sodium 142 mmol/L Normal 136-145 Potassium 3.9 mmol/L Normal 3.5-5.1 Chloride 108 mmol/L High 98-107 Carbon Dioxide 28 mmol/L Normal 21-32 Anion Gap 6 mEq/L Low 8-16 Calcium 8.5 mg/dL Normal 8.5-10.1 Lactic Acid 06/05/2019 [facility] Lactic Acid 1.1 mmol/L Normal 0.4-1.[address] [place], [place] [address] [phone] Lab Reflex >2.0 for Sepsis? Y Laboratory 06/05/2019 [facility] Legionella Negative Negative 6 test finding [address] [place] [address] Antigen [phone] Laboratory 06/04/2019 [facility] CK 105 U/L Normal 39-308 7, 8 test finding [address] [place], [place] [address] [phone] Troponin-I < 0.015 ng/mL 9 Magnesium 2.0 mg/dL Normal 1.8-2.4 10 C-Reactive Protein,Quant 6.1 mg/L High <3.0 11 Comprehensive 06/04/2019 [facility] Glucose 112 mg/ dL High 74-106 Metabolic Panel [address] [place], [place] [address] [phone] BUN 18 mg/dL Normal 7-18 Creatinine 1.2 [...] 58 U/L Normal 45-117 CBS W/Automated 06/04/2019 [facility] White Blood 11.6 K/uL High 3.4-10.[address] Count [place], [place] [id number] [phone] Red Blood Count 4.35 M/uL Normal 4.20-5.80 [...] Lymph % 4.1 % Low 20.0-42.0 [place] % 4.0 % Normal 0.0-10.0 Eo% 0.3 % Normal 0.0-6.6 Bas% 0.2 % Normal 0.0-1.1 Immature Grans 0.4 % Normal 0.0-5.0 NRBC % 0.0 /100WBC < 10/ 100 WBC Neut# 10.51 K/uL High 1.8-7.0 Lymph # 0.47 K/uL Low 1.0-4.0 [place] # 0.46 K/uL Normal 0.0-0.8 Eos # 0.04 K/uL Normal 0.0-0.5 Baso # 0.02 K/uL Normal 0.0-0.1 Immature Grans Absolute 0.05 K/uL NRBC # 0.00 K/uL Blood Culture 06/04/2019 [facility] Blood Culture NO GROWTH: 13, [address] Aerobic FINAL <[place] [address] NOTE> [phone] Blood Culture Anaerobic NO GROWTH: FINAL <SEE NOTE> 15 Lactic 06/04/2019 [facility] Lactic 3.2 mmol/L Critical 0.4-1.9 16, [address] Acid high [place], [place] [address] [phone] Lab Reflex >2.0 for Sepsis? Y Urinalysis With 06/04/2019 [facility] Urine Color STRAW Yellow Microscopic [address] [place], [place] [address] [phone] Urine Clarity CLEAR Clear Urine Glucose - Dipstick NEGATIVE mg/dL Negative Urine Bilirubin - Dipstick NEGATIVE Negative Urine Ketone NEGATIVE mg/dL Negative Urine Specific [place] <= 1.005 Low 1.010-1.030 Urine Blood SMALL [...] CAT <SEE NOTE> 18 Aot Request 06/04/2019 [facility] Aot Request Test(s ) added 19, [address] [place], [place] [id number] [phone] Tests to be added: CRP, MAGNESIUM Blood Culture 06/04/2019 [facility] Blood Culture NO GROWTH: [address] Aerobic FINAL <[place] [address] NOTE> [phone] Blood Culture Anaerobic NO GROWTH: FINAL <SEE NOTE> 22 Laboratory test 06/04/2019 [facility] Lactic 3.0 Critical 0.4-1.[address] Acid mmol/L high [place], [place] [address] [phone] Urinalysis With 04/27/2019 [facility] Urine YELLOW Yellow [address] [place] [address] [phone] Urine Clarity CLEAR Clear Urine Glucose - Dipstick NEGATIVE mg/dL Negative Urine Bilirubin - Dipstick NEGATIVE Negative Urine Ketone NEGATIVE mg/dL Negative Urine Specific [place] <= 1.005 Low 1.010-1.030 Urine Blood SMALL [...] CAT <SEE NOTE> 24 CBS W/Automated 04/27/2019 [facility] White 5.4 K/uL Normal 3.4-10.[address] [place] [address] Count [phone] Red Blood Count 4.30 M/uL Normal 4.20-5.80 [...] Lymph % 30.1 % Normal 20.0-42.0 [place] % 8.3 % Normal 0.0-10.0 Eo% 3.3 % Normal 0.0-6.6 Bas% 0.6 % Normal 0.0-1.1 Immature Grans 0.4 % Normal 0.0-5.0 NRBC % 0.0 /100WBC < 10/ 100 WBC Neut# 3.10 K/uL Normal 1.8-7.0 Lymph # 1.63 K/uL Normal 1.0-4.0 [place] # 0.45 K/uL Normal 0.0-0.8 Eos # [...] DIZZY, COLD CHILLS, HIGH BP?, SENT BY DR Lim Specimen slightly Hemolyzed, interpret with caution 18 [...] pain, unspecified Assessments Date Code Description Provider 09/24/2019 I11.9 Hypertensive heart disease without heart failure Kenia Dumont M.D. 09/24/2019 C67.9 Malignant neoplasm of bladder, unspecified Kenia Dumont M.D. 08/12/2019 I11.9 Hypertensive heart disease without heart [...] Kenia Dumont M.D. 06/04/2019 E86.0 Dehydration Kenia Dumont M.D. 06/04/2019 J09.x9 Influenza due to identified [...] Appointment(s):01/14/2020 8:00 am - Nurse at Main Pjzmpo7701/27/2020 10: 30 am - Kenia Dumont M.D. at Main Mceckd6206/26/2019 - Kenia Dumont M.D.I11.9 Hypertensive heart disease [...]
--- OUTSIDE RECORDS SUMMARY | 2019-11-04 17:27 | XMS REPORT | Continuity of Care Document ---
:1960 External Reference #:[id number] Author Name Olga Briscoe, FRONT DES[employer] HOST Address [address] [place] [address] Care Team Providers Name Role Phone Kenia Dumont MD - Internal Medicine Care Team Information Community Relations Assistant Problems Active Problems Provider Date Malignant tumor [...] Available Vital Signs Date Vital Result Comment 09/06/2019 2:03pm BP Systolic 159 mmHg right BP Diastolic 103 mmHg right BP Systolic Sitting Right Arm 144 mmHg BP Diastolic Sitting Right Arm 96 mmHg Body Temperature 98.6 F Heart Rate 78 /min Respiratory Rate 18 /min Weight 153.38 lb O2 % BldC Oximetry 97 % Ra Pain Level 0 08/09/2019 1:06pm BP Systolic 160 mmHg right BP Diastolic 93 mmHg right Body Temperature 98.4 F Heart Rate 67 /min Respiratory Rate 14 /min Weight 156.00 lb O2 % BldC Oximetry 99 % Ra Pain Level 0 Results Test Acquired Date Facility Test Result H/L Range Note CBS 09/06/2019 [facility] White Blood 6.8 K/uL Normal 3.4-10.5 1 W/Automated [address] [place] [address] [phone] Red Blood Count 4.28 M/uL Normal 4.20-5.80 [...] 33.0-73.0 Lymph % 38.0 % Normal 20.0-42.0 Gosper % 8.4 % Normal 0.0-10.0 Eo% 1.2 % Normal 0.0-6.6 Bas% 0.6 % Normal 0.0-1.1 Immature Grans 0.1 % Normal 0.0-5.0 NRBC % 0.0 /100WBC < 10/ 100 WBC Neut# 3.52 K/uL Normal 1.8-7.0 Lymph # 2.59 K/uL Normal 1.0-4.0 Gosper # 0.57 K/uL Normal 0.0-0.8 Eos # 0.08 K/uL Normal 0.0-0.5 Baso # 0.04 K/uL Normal 0.0-0.1 Immature Grans Absolute 0.01 K/uL NRBC # 0.00 K/uL Comprehensive 09/06/2019 [facility] Glucose 103 mg/dL Normal 74-106 Metabolic Panel [address] [place] [address] [phone] BUN 18 mg/dL Normal 7-18 Creatinine 1.1 mg/dL Normal 0.6-1.3 Glom Filtration Rate, Estimate >60 mL/min >60 If >60 mL/min >60 2 BUN/Creat 16.3 ratio Sodium 135 mmol/L Low [...] 53 U/L Normal 45-117 CBS W/Automated 08/09/2019 [facility] White Blood 6.3 K/uL Normal 3.4-10.5 [address] [place] [address] [phone] Red Blood Count 4.32 M/uL Normal 4.20-5.80 [...] 33.0-73.0 Lymph % 41.9 % Normal 20.0-42.0 Gosper % 6.6 % Normal 0.0-10.0 Eo% 1.8 % Normal 0.0-6.6 Bas% 0.8 % Normal 0.0-1.1 Immature Grans 0.3 % Normal 0.0-5.0 NRBC % 0.0 /100WBC < 10/ 100 WBC Neut# 3.04 K/uL Normal 1.8-7.0 Lymph # 2.62 K/uL Normal 1.0-4.0 Gosper # 0.41 K/uL Normal 0.0-0.8 Eos # 0.11 K/uL Normal 0.0-0.5 Baso # 0.05 K/uL Normal 0.0-0.1 Immature Grans Absolute 0.02 K/uL NRBC # 0.00 K/uL Comprehensive Metabolic 08/09/2019 [facility] Glucose 138 mg/dL High 74-106 Panel [address] [place] [address] [phone] BUN 18 mg/dL Normal 7-18 Creatinine 1.0 mg/dL Normal 0.6-1.3 Glom Filtration Rate, Estimate >60 mL/min >60 If >60 mL/min >60 4 BUN/Creat 18.0 ratio Sodium 136 mmol/L Normal [...] 56 U/L Normal 45-117 CBS W/Automated 07/12/2019 [facility] White Blood 6.0 K/uL Normal 3.4-10.[address] [place] [address] [phone] Red Blood Count 4.13 M/uL Low 4.20-5.80 [...] 33.0-73.0 Lymph % 42.4 % High 20.0-42.0 Gosper % 9.5 % Normal 0.0-10.0 Eo% 1.7 % Normal 0.0-6.6 Bas% 0.5 % Normal 0.0-1.1 Immature Grans 0.3 % Normal 0.0-5.0 NRBC % 0.0 /100WBC < 10/ 100 WBC Neut# 2.75 K/uL Normal 1.8-7.0 Lymph # 2.55 K/uL Normal 1.0-4.0 Gosper # 0.57 K/uL Normal 0.0-0.8 Eos # 0.10 K/uL Normal 0.0-0.5 Baso # 0.03 K/uL Normal 0.0-0.1 Immature Grans Absolute 0.02 K/uL NRBC # 0.00 K/uL Comprehensive 07/12/2019 [facility] Glucose 86 mg/dL Normal 74-106 Metabolic Panel [address] [place] [address] [phone] BUN 18 mg/dL Normal 7-18 Creatinine 1.1 [...] [facility] White Blood 6.6 K/uL Normal 3.4-10.5 [address] Count [place], [place] [id number] [phone] Red Blood Count 4.14 M/uL Low 4.20-5.80 [...] 33.0-73.0 Lymph % 35.2 % Normal 20.0-42.0 Gosper % 6.9 % Normal 0.0-10.0 Eo% 1.5 % Normal 0.0-6.6 Bas% 0.8 % Normal 0.0-1.1 Immature Grans 0.5 % Normal 0.0-5.0 NRBC % 0.0 /100WBC < 10/ 100 WBC Neut# 3.66 K/uL Normal 1.8-7.0 Lymph # 2.34 K/uL Normal 1.0-4.0 Gosper # 0.46 K/uL Normal 0.0-0.8 Eos # 0.10 K/uL Normal 0.0-0.5 Baso # 0.05 K/uL Normal 0.0-0.1 Immature Grans Absolute 0.03 K/uL NRBC # 0.00 K/uL Comprehensive Metabolic 06/14/2019 [facility] Glucose 138 mg/dL High 74-106 Panel [address] [place], [place] [id number] [phone] BUN 16 mg/dL Normal 7-18 Creatinine 1.2 mg/dL Normal 0.6-1.3 Glom Filtration Rate, Estimate >60 mL/min >60 If >60 mL/min >60 7 BUN/Creat 13.3 ratio Sodium 137 mmol/L Normal [...] 12-78 Alkaline Phosphatase 58 U/L Normal 45-117 GFR/Bsa 06/05/2019 N2N/CCD Import GFR/Bsa >60 >60 pred.black SerPl pred.black SerPl MDRD-ArVRat MDRD-ArVRat Estimated 06/05/2019 N2N/CCD Import Estimated >60 >60 glomerular glomerular filtration rate filtration rate (GFR) non-Afr (GFR) non- Serum or plasma 06/05/2019 N2N/CCD Import Serum or plasma 1.0 0.6-1.3 creatinine creatinine measurement measurement (mass/volum (mass/volume) Serum or plasma 06/05/2019 N2N/CCD Import Serum or plasma 15 7-18 urea nitrogen urea nitrogen measurement measurement (mass/vo (mass/volume) Serum or plasma 06/05/2019 N2N/CCD Import Serum or plasma 109 High 74- 106 glucose glucose measurement measurement (mass/volume) (mass/volume) Automated blood 06/05/2019 N2N/CCD Import Automated blood 0.00 nucleated nucleated erythrocyte count erythrocyte count (count (count/volume) Automated blood 06/05/2019 N2N/CCD Import Automated blood 0.03 immature immature granulocyte count granulocyte count (number (number/volume) Automated blood 06/05/2019 N2N/CCD Import Automated blood 0.03 0.0-0.1 basophil count basophil count (number/volume) (number/volume) Automated blood 06/05/2019 N2N/CCD Import Automated blood 0.19 0.0-0.5 eosinophil count eosinophil count Blood monocytes 06/05/2019 N2N/CCD Import Blood monocytes 0.71 0.0-0.8 automated count automated count (number/volume) (number/volume) Serum or plasma 06/05/2019 N2N/CCD Import Serum or plasma 15.0 urea urea nitrogen/creatini nitrogen/creatini ne mass rati ne mass ratio Sodium SerPl-sCnc 06/05/2019 N2N/CCD Import [...] Import Serum or plasma 8.5 8.5-10.1 calcium calcium measurement measurement (mass/volume) (mass/volume) Lactic Acid 06/05/2019 [facility] Lactic Acid 1.1 Normal 0.4-1.[address] mmol/[place] [address] [phone] Lab Reflex >2.0 for Sepsis? Y Serum or plasma 06/05/2019 N2N/CCD Import Serum or plasma 1.1 0.4-1.9 lactate lactate measurement measurement (moles/volume) (moles/volume) Laboratory test 06/05/2019 [facility] Legionella Negative Negative 9 finding [address] [place] [address] [phone] Urine Legionella 06/05/2019 N2N/CCD Import Urine Legionella Negative Negative pneumophila 1 pneumophila 1 antigen detection antigen detection b by immunoassay CBC W/Automated 06/05/2019 [facility] White Blood Count 8.3 K/uL Normal 3.4- 10.5 Diff [address] [place] [address] [phone] Red Blood Count 4.04 M/uL Low 4.20-5.80 [...] 33.0-73.0 Lymph % 24.1 % Normal 20.0-42.0 Gosper % 8.5 % Normal 0.0-10.0 Eo% 2.3 % Normal 0.0-6.6 Bas% 0.4 % Normal 0.0-1.1 Immature Grans 0.4 % Normal 0.0-5.0 NRBC % 0.0 /100WBC < 10/ 100 WBC Neut# 5.35 K/uL Normal 1.8-7.0 Lymph # 2.00 K/uL Normal 1.0-4.0 Gosper # 0.71 K/uL Normal 0.0-0.8 Eos # 0.19 K/uL Normal 0.0-0.5 Baso # 0.03 K/uL Normal 0.0-0.1 Immature Grans Absolute 0.03 K/uL NRBC # 0.00 K/uL Basic Metabolic Panel 06/05/2019 [facility] Glucose 109 mg/dL High 74-106 [address] [place], [place] [id number] [phone] BUN 15 mg/dL Normal 7-18 Creatinine 1.0 mg/dL Normal 0.6-1.3 Glom Filtration Rate, Estimate >60 mL/min >60 If >60 mL/min >60 10 BUN/Creat 15.0 ratio Sodium 142 mmol/L Normal 136-145 Potassium 3.9 mmol/L Normal 3.5-5.1 Chloride 108 mmol/L High 98-107 Carbon Dioxide 28 mmol/L Normal 21-32 Anion Gap 6 mEq/L Low 8-16 Calcium 8.5 mg/dL Normal 8.5-10.1 Automated leukocyte 06/05/2019 N2N/CCD Import Automated 8.3 3.4-10.5 count leukocyte count (number/volume) (number/volume) Blood erythrocytes [...] lymphocyte count lymphocyte count (number/volume) (number/volume) Absolute neutrophil 06/05/2019 N2N/CCD Import Absolute 5.35 1.8-7.0 count neutrophil count Automated blood 06/05/2019 N2N/CCD [...] % % Automated 06/05/2019 N2N/CCD Import Automated 2.3 0.0-6.6 eosinophil % eosinophil % Automated monocyte 06/05/2019 N2N/CCD Import Automated monocyte 8.5 0.0- 10.0 % % Automated blood 06/05/2019 N2N/CCD Import Automated blood 24.1 20.0- 42.0 lymphocytes/100 lymphocytes/100 leukocytes leukocytes Automated blood 06/05/2019 N2N/CCD Import Automated blood 64.3 33.0- 73.0 neutrophils/100 neutrophils/100 leukocytes leukocytes Automated blood 06/05/2019 N2N/CCD Import Automated blood 10.3 6.6-10.6 platelet mean platelet mean volume measurement volume measurement Automated 06/05/2019 N2N/CCD Import Automated 12.4 11.6-15.8 erythrocyte erythrocyte distribution width distribution width ratio ratio Automated urine 06/04/2019 N2N/CCD Import Automated urine 2-5 0-2 sediment sediment erythrocyte count erythrocyte count by micr by microscopy (number/high power field) Urine sediment 06/04/2019 N2N/CCD Import Urine sediment 0-2 0-7 leukocyte count by leukocyte count by microscopy (numb microscopy (number/high power field) Epithelial cells 06/04/2019 N2N/CCD Import Epithelial cells Very Few None Seen detection in urine detection in urine sediment by li sediment by light microscopy Bacteria detection 06/04/2019 N2N/CCD Import Bacteria detection Very Few None Seen in urine sediment in urine sediment by light micr by light microscopy Blood Culture 06/04/2019 [facility] Blood Culture NO [address] Aerobic GROWTH: [place] [address] FINAL [phone] <SEE NOTE> Blood Culture Anaerobic NO GROWTH: FINAL <SEE NOTE> 12 Comprehensive Metabolic 06/04/2019 [facility] Glucose 112 mg/dL High 74-106 Panel [address] [place] [address] [phone] BUN 18 mg/dL Normal 7-18 Creatinine 1.2 mg/dL Normal 0.6-1.3 Glom Filtration Rate, Estimate >60 mL/min >60 If >60 mL/min >60 13 BUN/Creat 15.0 ratio Sodium 136 mmol/L Normal [...] 12-78 Alkaline Phosphatase 58 U/L Normal 45-117 Laboratory test 06/04/2019 [facility] Magnesium 2.0 mg/dL Normal 1.8-2.4 14 finding [address] [place] [address] [phone] CK 105 U/L Normal 39-308 15 Troponin-I < 0.015 ng/mL 16 C-Reactive Protein,Quant 6.1 mg/L High <3.0 17 Serum or plasma 06/04/2019 N2N/CCD Import Serum or plasma 8.2 6.4-8.2 protein measurement protein (mass/volume) measurement (mass/volume) Serum or plasma 06/04/2019 N2N/CCD Import Serum or plasma 3.9 3.4-5.0 albumin measurement albumin (mass/volume) measurement (mass/volume) Serum globulin 06/04/2019 N2N/CCD Import Serum globulin 4.3 1.9-4.3 measurement by measurement by calculation calculation (mass/vo (mass/volume) Serum or plasma 06/04/2019 N2N/CCD Import Serum or plasma 0.9 albumin/globulin albumin/globulin mass ratio mass ratio Serum or plasma 06/04/2019 N2N/CCD Import Serum or plasma 0.8 0.2-1.0 total bilirubin total bilirubin measurement (mass/ measurement (mass/volume) Serum or plasma 06/04/2019 N2N/CCD Import Serum or plasma 37 15-37 aspartate aspartate aminotransferase aminotransferase measure measurement (enzymatic activity/volume) Serum or plasma 06/04/2019 N2N/CCD Import Serum or plasma 28 12-78 alanine alanine aminotransferase aminotransferase measureme measurement (enzymatic activity/volume) Serum or plasma 06/04/2019 N2N/CCD Import Serum or plasma 58 45-117 alkaline alkaline phosphatase phosphatase measurement ( measurement (enzymatic activity/volume) Laboratory test 06/04/2019 [facility] Lactic Acid 3.0 Critical 0.4-1.[address] mmol/[place] [address] [phone] Blood Culture 06/04/2019 [facility] Blood Culture NO [address] Aerobic GROWTH: [place] [address] FINAL [phone] <SEE NOTE> Blood Culture Anaerobic NO GROWTH: FINAL <SEE NOTE> 19 Aot Request 06/04/2019 [facility] Aot Request Test(s) added [address] [place] [address] [phone] Tests to be added: CRP, MAGNESIUM * Miscellaneous 06/04/2019 N2N/CCD Import * Miscellaneous Test(s) studies (set) studies (set) added Urine color 06/04/2019 N2N/CCD Import Urine color Straw Yellow determination determination Urine appearance 06/04/2019 N2N/CCD Import Urine appearance Clear Clear determination determination Urine glucose 06/04/2019 N2N/CCD Import Urine glucose Negative Negative measurement by measurement by automated test automated test strip strip (mass/volume) Urine total 06/04/2019 N2N/CCD Import Urine total Negative Negative bilirubin bilirubin detection by detection by automated test automated test strip Urine ketones 06/04/2019 N2N/CCD Import Urine ketones Negative Negative measurement by measurement by automated test automated test strip strip (mass/volume) Specific gravity 06/04/2019 N2N/CCD Import Specific gravity <=1.005 Low 1.010-1.030 of Urine by of Urine by Automated test Automated test strip strip Urine hemoglobin 06/04/2019 N2N/CCD Import Urine hemoglobin Small High Negative detection by detection by automated test automated test strip strip Urine pH 06/04/2019 N2N/CCD Import Urine pH 6.5 6.5-7.5 measurement by measurement by automated test automated test strip strip Urine protein 06/04/2019 N2N/CCD Import Urine protein Negative Negative measurement by measurement by automated test automated test strip strip (mass/volume) Urine 06/04/2019 N2N/CCD Import Urine 0.2 0.2-1.0 urobilinogen urobilinogen measurement measurement (units/volume) (units/volume) by t by test strip Urine nitrite 06/04/2019 N2N/CCD Import Urine nitrite Negative Negative detection by detection by automated test automated test strip strip Urine leukocyte 06/04/2019 N2N/CCD Import Urine leukocyte Negative Negative esterase esterase detection by detection by automated te automated test strip CBS W/Automated 05/10/2019 [facility] White Blood 7.0 K/uL Normal 3.4-10.5 [address] Count [place], [place] [id number] [phone] Red Blood Count 4.15 M/uL Low 4.20-5.80 [...] 33.0-73.0 Lymph % 37.1 % Normal 20.0-42.0 Gosper % 8.4 % Normal 0.0-10.0 Eo% 1.3 % Normal 0.0-6.6 Bas% 0.6 % Normal 0.0-1.1 Immature Grans 0.3 % Normal 0.0-5.0 NRBC % 0.0 /100WBC < 10/ 100 WBC Neut# 3.69 K/uL Normal 1.8-7.0 Lymph # 2.61 K/uL Normal 1.0-4.0 Gosper # 0.59 K/uL Normal 0.0-0.8 Eos # 0.09 K/uL Normal 0.0-0.5 Baso # 0.04 K/uL Normal 0.0-0.1 Immature Grans Absolute 0.02 K/uL NRBC # 0.00 K/uL Comprehensive Metabolic 05/10/2019 [facility] Glucose 109 mg/dL High 74-106 Panel [address] [place] [address] [phone] BUN 19 mg/dL High 7-18 Creatinine 1.0 mg/dL Normal 0.6-1.3 Glom Filtration Rate, Estimate >60 mL/min >60 If >60 mL/min >60 22 BUN/Creat 19.0 ratio Sodium 135 mmol/L Low [...] plasma 04/27/2019 N2N/CCD Import Serum or plasma 306 High 56- 289 lipase lipase measurement measurement (enzymatic (enzymatic acti activity/volume) CBS W/Automated 04/05/2019 [facility] White Blood Count 6.2 Normal 3.4-10.[address] K/[place] [address] [phone] Red Blood Count 4.33 M/uL Normal 4.20-5.80 Hemoglobin 14.6 gm/dL Normal 12.8-17.0 Hematocrit 42.0 % Normal 38.0-48.0 Mean Cell Volume 97.0 fl High 80.0-96.0 Mean Corpuscular HGB 33.7 pg High 27.0-33.0 Mean Corpuscular HGB Conc 34.8 g/dL Normal 31.7-36.0 Platelet Count 240 K/uL Normal 155-360 Red Cell Distri Width SD 44.2 fl Normal 36-51 Red Cell Distri Width %CV 12.3 % Normal 11.6-15.8 Mean Platelet Volume 10.3 fl Normal 6.6-10.6 Neut% 53.5 % Normal 33.0-73.0 Lymph % 36.1 % Normal 20.0-42.0 Gosper % 8.2 % Normal 0.0-10.0 Eo% 1.3 % Normal 0.0-6.6 Bas% 0.6 % Normal 0.0-1.1 Immature Grans 0.3 % Normal 0.0-5.0 NRBC % 0.0 /100WBC < 10/ 100 WBC Neut# 3.31 K/uL Normal 1.8-7.0 Lymph # 2.24 K/uL Normal 1.0-4.0 Gosper # 0.51 K/uL Normal 0.0-0.8 Eos # 0.08 K/uL Normal 0.0-0.5 Baso # 0.04 K/uL Normal 0.0-0.1 Immature Grans Absolute 0.02 K/uL NRBC # 0.00 K/uL Comprehensive Metabolic 04/05/2019 [facility] Glucose 120 mg/dL High 74-106 Panel [address] [place], [place] [address] [phone] BUN 19 mg/dL High 7-18 Creatinine 1.0 mg/dL Normal 0.6-1.3 Glom Filtration Rate, Estimate >60 mL/min >60 If >60 mL/min >60 23 BUN/Creat 19.0 ratio Sodium 136 mmol/L Normal 136-145 Potassium 3.8 mmol/L Normal 3.5-5.1 Chloride 102 mmol/L Normal 98-107 Carbon Dioxide 28 mmol/L Normal 21-32 Anion Gap 6 mEq/L Low 8-16 Calcium 8.1 mg/dL Low 8.5-10.1 Total Protein 7.7 g/dL Normal 6.4-8.2 Albumin 3.7 g/dL Normal 3.4-5.0 Globulin 4.0 g/dL Normal 1.9-4.3 Alb/Glob 0.9 ratio Bilirubin,Total 0.4 mg/dL Normal 0.2-1.0 Sgot/Ast 23 U/L Normal 15-37 SGPT/Alt 24 U/L Normal 12-78 Alkaline Phosphatase 57 U/L Normal 45-117 1 C7A.00 C78.7 2 Note: Persistent reduction for 3 months or more in an eGFR <60 mL/min/1.73 m2 defines CKD. Patients with eGFR values >/=60 mL/min/1.73 m2 may also have CKD if evidence of persistent proteinuria is present. The original MDRD equation for estimated GFR is not valid for patients less than 18 years of age. Additional information may be found at [email or web address]. 3 C7A.00 C78.7 Z51.11 C67.9 4 Note: Persistent reduction for 3 months or more in an eGFR <60 mL/min/1.73 m2 defines CKD. Patients with eGFR values >/=60 mL/min/1.73 m2 may also have CKD if evidence of persistent proteinuria is present. The original MDRD equation for estimated GFR is not valid for patients less than 18 years of age. Additional information may be found at [email or web address]. 5 Note: Persistent reduction for 3 months or more in an eGFR <60 mL/min/1.73 m2 defines CKD. Patients with eGFR values >/=60 mL/min/1.73 m2 may also have CKD if evidence of persistent proteinuria is present. The original MDRD equation for estimated GFR is not valid for patients less than 18 years of age. Additional information may be found at [email or web address]. 6 C7A.00 C78.7 Z85.81 C67.9 7 Note: Persistent reduction for 3 months or more in an eGFR <60 mL/min/1.73 m2 defines CKD. Patients with eGFR values >/=60 mL/min/1.73 m2 may also have CKD if evidence of persistent proteinuria is present. The original MDRD equation for estimated GFR is not valid for patients less than 18 years of age. Additional information may be found at [email or web address]. 8 LACTIC ACIDOSIS 9 Presumptive negative for L. pneumophila serogroup 1 antigen in urine, suggesting no recent or current infection. Legionnaires' disease cannot be ruled out since other serogroups and species may also cause disease. 10 Note: Persistent reduction for 3 months or more in an eGFR <60 mL/min/1.73 m2 defines CKD. Patients with eGFR values >/=60 mL/min/1.73 m2 may also have CKD if evidence of persistent proteinuria is present. The original MDRD equation for estimated GFR is not valid for patients less than 18 years of age. Additional information may be found at [email or web address]. 11 NO GROWTH: FINAL REPORT 12 NO GROWTH: FINAL REPORT 13 Note: Persistent reduction for 3 months or more in an eGFR <60 mL/min/1.73 m2 defines CKD. Patients with eGFR values >/=60 mL/min/1.73 m2 may also have CKD if evidence of persistent proteinuria is present. The original MDRD equation for estimated GFR is not valid for patients less than 18 years of age. Additional information may be found at [email or web address]. 14 Specimen slightly Hemolyzed, interpret with caution 15 Specimen slightly Hemolyzed, interpret with caution 16 0.0 - 0.045 ng/mL: Normal 0.046 - 0.5 ng/mL: Suggestive 0.6 - 1.5 ng/mL: Consistent 17 Specimen slightly Hemolyzed, interpret with caution 18 NO GROWTH: FINAL REPORT 19 NO GROWTH: FINAL REPORT 20 Tests: CRP, MAGNESIUM Instructions: 21 C7A.00 C78.7 C67.9 Z51.11 22 Note: Persistent reduction for 3 months or more in an eGFR <60 mL/min/1.73 m2 defines CKD. Patients with eGFR values >/=60 mL/min/1.73 m2 may also have CKD if evidence of persistent proteinuria is present. The original MDRD equation for estimated GFR is not valid for patients less than 18 years of age. Additional information may be found at [email or web address]. 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 Office Visit 05/10/2019 1:30p [facility] [place], C7A.00 Malignant Olga B., FRONT DESK HOST carcinoid tumor of unspecified site 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 Office Visit 04/05/2019 1:00p Oncology Office [facility] C7A.00 Malignant DO Shania carcinoid tumor of unspecified site Z51.11 Encounter for antineoplastic chemotherapy Z85.51 Personal history of malignant neoplasm of bladder Assessments Date Code Description Provider 09/06/2019 C7A.00 Malignant carcinoid tumor of unspecified [place], Olga B., FRONT DESK HOST site 09/06/2019 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 [place], Olga B., FRONT DESK HOST intrahepatic bile duct 08/09/2019 C7A.00 Malignant carcinoid tumor of unspecified [place], Olga B., FRONT DESK HOST site 08/09/2019 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 [place], Olga B., FRONT DESK HOST intrahepatic bile duct 07/12/2019 C7A.00 Malignant carcinoid tumor of unspecified [place], Olga B., FRONT DESK HOST site 06/14/2019 C7A.00 Malignant carcinoid tumor of unspecified [place], Olga B., FRONT DESK HOST site 06/14/2019 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 [place], Olga B., FRONT DESK HOST intrahepatic bile duct 06/05/2019 R65.10 Systemic inflammatory [...] Malignant carcinoid tumor of unspecified Olga Briscoe, FRONT DESK HOST site 05/10/2019 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 Olga Briscoe FRONT DESK HOST intrahepatic bile 04/05/2019 C7A.00 Malignant carcinoid tumor of unspecified Shania Mcdermott DO site 04/05/2019 Z51.11 Chemotherapy changed - patient choice Shania Mcdermott DO 04/05/2019 Z85.51 Personal history of malignant neoplasm of Shania Mcdermott DO bladder Plan of Treatment Future Appointment(s):10/04/2019 1:30 pm - Infusion Chair 7 at Infusion [id number]/04/2019 2:00 pm - Olga Briscoe, FRONT DESK HOST at Infusion [id number]/29/2017 - Rene Drew M.D.K40.20 Bilateral inguinal hernia, without obstruction or gangrene, not specified as recurrentComments:Healing well. Pleased. Questions addressed. As needed follow-up. Functional Status Description No Information Available Mental Status Description No Information Available Referrals Description No Information Available
[2019-11-04 17:40] VITALS: BP 154/100
--- NOTE | 2019-11-04 17:49 | UC ---
Throat Pain/Nasal Tino HPI - HPI Summary HPI Summary: 59-year-old male presents with 2-3 day history of sneezing, runny nose, and occasional dry nonproductive cough. Denies fever, chills, body aches, ear pain , sore throat, chest pain, shortness of breath, abdominal pain, nausea, or vomiting. - History of Current Complaint Chief Complaint: UCGeneralIllness Stated Complaint: COUGH,SNEEZY Time Seen by Provider: 11/04/19 17:46 Hx Obtained From: Patient Pain Intensity: 0 - Allergies/Home Medications Allergies/Adverse Reactions: Allergies Allergy/AdvReac Type Severity Reaction Status Date / Time ciprofloxacin Allergy Rash Verified 11/04/19 17:34 Home Medications: Home Medications Metoprolol Succinate [Toprol Xl] 50 mg PO BID 11/04/19 [History Confirmed ] amLODIPine TAB* [Norvasc 5 mg TAB*] 5 mg PO DAILY 11/04/19 [History Confirmed ] cloNIDine 0.1 MG PATCH* [[id number]-[id number] 0.1 mg Patch*] 1 dose TOPICAL DAILY [History Confirmed 11/04/19] PMH/Surg Hx/FS Hx/Imm Hx Cardiovascular History: Hypertension - Surgical History Surgical History: Yes Surgery Procedure, Year, and Place: bladder tumor removal. hernia repair as a child. double hernia repair 2016 - Family History Known Family History: Positive: Non-Contributory - Social History Occupation: Unemployed Lives: With Family Alcohol Use: None Substance Use Type: None Smoking Status (MU): Never Smoked Tobacco Review of Systems All Other Systems Reviewed And Are Negative: Yes Constitutional: Negative: Fever, Chills Eyes: Negative: Drainage, Eye Redness ENT: Positive: Nasal Discharge, Sinus Congestion. Negative: Sore Throat, Ear Ache, Sinus Pain/Tenderness Respiratory: Positive: Cough. Negative: Shortness Of Breath Cardiovascular: Negative: Palpitations, Chest Pain Gastrointestinal: Negative: Abdominal Pain, Vomiting, Diarrhea, Nausea Genitourinary: Positive: Negative Musculoskeletal: Negative: Myalgia Neurological: Negative: Headache Psychological: Positive: Negative Physical Exam - Summary Physical Exam Summary: GENERAL APPEARANCE: Well developed, well nourished, alert and cooperative, and appears to be in no acute distress. EYES: Conjunctiva clear. No drainage. EARS: External auditory canals and tympanic membranes clear, hearing grossly intact. NOSE: Mild nasal congestion. No nasal discharge. THROAT: Pharynx normal. No tonsilar inflammation, swelling, exudate, or lesions. Uvula midline. NECK: Neck supple, non-tender without lymphadenopathy. CARDIAC: Normal S1 and S2. No S3, S4 or murmurs. Rhythm is regular. There is no peripheral edema, cyanosis or pallor. Extremities are warm and well perfused. Capillary refill is less than 2 seconds. Peripheral pulses intact. LUNGS: Clear to auscultation without rales, rhonchi, wheezing or diminished breath sounds. Dry nonproductive cough. ABDOMEN: Positive bowel sounds. Soft, nondistended, nontender. No guarding or rebound. No masses or hepatosplenomegally. MUSKULOSKELETAL: ROM intact to all extremities. No joint erythema or tenderness. Normal muscular development. Normal gait. SKIN: Skin normal color, texture and turgor with no lesions or eruptions. Triage Information Reviewed: Yes Vital Signs: Initial Vital Signs Temp 98.8 F 11/04/19 17:37 Pulse 78 11/04/19 17:37 Resp 20 11/04/19 17:37 BP 154/100 11/04/19 17:37 Pulse Ox 96 11/04/19 17:37 Vital Signs Reviewed: Yes Throat Pain/Nasal Course/Dx - Course Course Of Treatment: 59-year-old male presents with 2-3 day history of sneezing, runny nose, and occasional dry nonproductive cough. Denies fever, chills, body aches, ear pain , sore throat, chest pain, shortness of breath, abdominal pain, nausea, or vomiting. Afebrile. Hypertensive otherwise vital signs stable. Patient had some mild nasal congestion, normal pharynx, no cervical lymphadenopathy, clear bilateral breath sounds, dry nonproductive cough, and otherwise unremarkable exam. I discussed with patient that his symptoms were consistent with the common cold and I'm recommending symptomatic treatment at this time. He is to follow-up with his primary care provider in 3-5 days if symptoms are not improving. Anticipatory guidance and warning symptoms are reviewed with the patient. Verbalized understanding and agrees with plan of care. - Differential Dx/Diagnosis Differential Diagnosis/HQI/PQRI: Influenza, Sinusitis, URI Provider Diagnosis: Common cold Discharge ED - Sign-Out/Discharge Documenting (check all that apply): Patient Departure All imaging exams completed and their final reports reviewed: No Studies - Discharge Plan Condition: Stable Disposition: HOME Patient Education Materials: Cold Symptoms (ED) Referrals: Kenia Dumont MD [Primary Care Provider] - 3 Days (Follow up in 3-5 days if symptoms persist.) Additional Instructions: Your history and exam are consistent with the common cold. The common cold is caused by a virus which does not respond to antibiotics and is limited to the treatment of symptoms. Viral infections typically run their course in 7-10 days. Get plenty of rest. Drink plenty of fluids to avoid dehydration especially if you are running any fever. Take over the counter acetaminophen (Tylenol) according to directions as needed for pain or fever. You may continue to use an over the counter cough syrup such as plain Robitussin for the cough. Follow up with your primary care provider in 3-5 days if symptoms persist. Seek immediate medical attention in the emergency room if you have fever greater than 100.5 F despite taking acetaminophen, have chest pain, difficulty breathing, are unable to swallow, or have any worsening of symptoms. - Billing Disposition and Condition Condition: STABLE Disposition: Home
== END 2019-11-04 18:06 | disposition home or self-care (01) ==
LOC: UCCORT 17:16
DX: J00 Acute nasopharyngitis [common cold] (principal); J34.89 Other specified disorders of nose and nasal sinuses; I10 Essential (primary) hypertension; Z88.1 Allergy status to other antibiotic agents; Z79.899 Other long term (current) drug therapy
CPT/HCPCS: 99201; G0463